=== PATIENT | female | born 1945 | race Caucasian/White ===

== ENCOUNTER 2016-02-27 18:47 | Inpatient (IN) | payer OTHER ==
[~2016-02-27] VITALS: Ht 160 cm; Wt 54.7 kg
--- NOTE | ~2016-02-27 | HC ---
[facility] [place] [address] CONSULTATION Name: KOURTNEY THOMAS Room #: 315-P ADM IN M.R.#: [id number] Admission: 02/27/16 Attend Phys: Shahram Luis DO Discharge: Date of : 45 Report #: [id number] THIS REPORT FOR: //name// CC: Shahram Krishnamurthy Tone DATE OF SERVICE: 03/04/2016 The patient is a 71-year-old white female who was admitted with mental status changes. She was found down by a neighbor. There was emesis and stool in her house. There also was a vodka container noted. She was admitted with acute renal failure on chronic kidney disease and her creatinine was noted to be 15.4 with her last prior at 2.8. She had severe metabolic acidosis, was noted to have metabolic encephalopathy. She was diagnosed with C. diff colitis and also urinary tract infection, placed on Rocephin. Nephrology has been involved and she has end-stage renal disease and is on hemodialysis now. She does have moderate to severe protein-calorie malnutrition. There is a history of daily vodka intake, although question how much. She does have the history of ETOH abuse included on her problem list. We are seeing her in rehabilitation medicine consultation. PAST MEDICAL HISTORY: Includes hypertension, hyperlipidemia, chronic kidney disease stage 3-4 and possible COPD. MEDICATIONS: Please see the full medication listing. SOCIAL HISTORY: She lives alone. No children or spouse. There is a note of drinking vodka daily, although uncertain exactly how much. She was driving in the community. She does have a Dr. Lockhart who is a durable power of claims attorney and friend as well as a friend, Marlee. She notes she does have a long-term care policy. FAMILY HISTORY: Appeared noncontributory. ALLERGIES: No known drug allergies. PAST SURGICAL HISTORY: Negative. REVIEW OF SYSTEMS: Did not offer any current complaints of chest pain, shortness of breath or abdominal discomfort. She was not on O2 premorbidly. Did not have any specific extremity pain complaints. Does complain of being overall weak and debilitated. PHYSICAL EXAMINATION: Pleasant 71-year-old white female. There is a definite latency to her responses, but she does follow basic 1 step commands. She could tell me the year and the place. Tends to be somewhat tangential. Facies are [facility] [address] [place] [address] CONSULTATION Name: ARTHUR THOMASN OLINDA Room #: 315-P [facility] IN .R.#: [id number] Admission: 02/27/16 Attend Phys: Shahram Luis DO Discharge: Date of : 45 Report #: [id number] symmetric. She is on 3 liters nasal prong O2. She has functional range of motion of both upper extremities with strength grade 4- to 3+/5. DTRs are trace to 1. In her lower extremities, there is no focal calf swelling, functional range of motion with strength grade 4+/5. No distal edema. DTRs are 1-2. She was mod assist with sit to stand. Gait was 2 feet min assist with the front wheeled walker for which she is taking small steps. ASSESSMENT: A 71-year-old white female with the following problem list: 1. Metabolic encephalopathy. This appears to be gradually improving. 2. Severe acute renal failure on chronic kidney disease. She is now on hemodialysis. 3. Clostridium difficile colitis. 4. Urinary tract infection, placed on Rocephin. 5. Moderate to severe protein-calorie malnutrition. 6. ETOH abuse. 7. Hypoxemia with the need for continued O2 usage. 8. Acidosis, which has improved. PLAN: Therapy evaluations are underway. We will be assessing her regarding her appropriateness for a potential acute in-hospital inpatient rehabilitation stay. We will be glad to follow along with you. <ELECTRONICALLY SIGNED> By: Harris Brown MD 03/04/16 1624 1145 1329 Harris Brown MD /nt
--- NOTE | ~2016-02-27 | HC ---
[facility] [place] [address] CONSULTATION Name: KOURTNEY THOMAS Room #: 315-P ADM IN M.R.#: [id number] Admission: 02/27/16 Attend Phys: Shahram Luis DO Discharge: Date of : 45 Report #: [id number] THIS REPORT FOR: //name// CC: Shahram Blackburn DATE OF SERVICE: 02/28/2016 REASON FOR CONSULTATION: Renal failure. HISTORY OF PRESENT ILLNESS: This is a 71-year-old female who was found in her home. She lives alone. She was checked on by a friend and was found to be delirious. This is the report from the Emergency Room, but that has been confirmed by other sources as that friend also contact our practice to report the developments. She had apparently been sick for several days with nausea, vomiting and diarrhea. She confirmed this, but cannot tell me if she has had fever. She has had some abdominal discomfort. From a kidney standpoint, she has chronic kidney disease stage V. She has had longstanding severe proteinuria, but has maintained enough function that she has not needed dialysis. She is followed in our office long-term by Dr. Raghu Blackburn. I have spoken with him this morning. He tells me that he has been quite amazed that she has not needed to proceed to dialysis prior to now. In addition to her proteinuria and chronically elevated creatinine, she tends to get very acidotic. She is chronically on bicarbonate replacement at home. She has extensive atherosclerotic vascular disease, and this has been further supported in review of her CT of the abdomen that was done in the Emergency Room last night, showing extensive calcific disease of numerous abdominal vessels including aorta, renal arteries, multiple order branches of the renal arteries and multiple of her mesenteric arteries. The patient does awaken more than what was described earlier, but is still fairly obtunded. She is able to answer "yes" and "no" to a few questions, but much of this history is considered a bit unreliable at this time. PAST MEDICAL HISTORY: Chronic kidney disease stage V. Nephrotic proteinuria. She has a history of COPD and is a chronic smoker, although reportedly Dr. Blackburn says she stopped smoking. She has some hypertension, secondary hyperparathyroidism and chronic anemia. She has also had previously documented renal artery stenosis, but has extensive vascular disease involving the small or intrarenal vessels. MEDICATIONS: On admission show an Advair inhaler, aspirin 81 mg daily, diltiazem 240 mg daily, Crestor 10 mg daily and allopurinol 100 mg daily. In addition, our office list shows some calcitriol 0.25 mcg 3 days weekly, p.r.n. colchicine, Prolia and some baking soda 1 teaspoon [address]. [address] [address] CONSULTATION Name: KOURTNEY THOMAS Room #: 315-P [facility] IN M.R.#: [id number] Admission: 02/27/16 Attend Phys: Shahram Luis DO Discharge: Date of : 45 Report #: [id number] ALLERGIES: Listed to LISINOPRIL. FAMILY HISTORY: Unavailable. SOCIAL HISTORY: The patient is single, lives alone in [place], [place]. She was a long-term smoker but has quit. She has also had some history of alcohol and there was some reported alcohol use over the weekend. REVIEW OF SYSTEMS: Basically as per the history of present illness. Otherwise, unobtainable from the patient in any reliable manner at this point. PHYSICAL EXAMINATION: GENERAL: Elderly appearing female, obtunded, but does awaken and respond, obviously dry on exam. VITAL SIGNS: Blood pressure 104/65, heart rate is 111, temperature 97.0 and oxygen saturation 93%. HEENT: Shows pupils are equal and reactive. Sclerae are nonicteric. Oral mucosa is parched without lesions. NECK: Supple without adenopathy, thyromegaly, JVD or bruit. CHEST: Shows shallow respirations but is generally clear. CARDIOVASCULAR: Heart has a regular rate and rhythm bordering on a tachycardia. ABDOMEN: Has bowel sounds which are actually present. Abdomen is mildly distended. It is moderately tender, but without guarding or rebound. I cannot palpate organomegaly or masses. It is actually fairly soft. No distention of the urinary bladder, and this was confirmed by bladder scan. EXTREMITIES: Show decreased skin turgor, although this is actually somewhat better than expected. There is moderate diffuse muscle atrophy. NEUROLOGIC: She is obtunded but does awaken and respond and moves all extremities. LABORATORY DATA: From the Emergency Room, sodium 138, potassium 5.4, chloride 98, bicarbonate 34, BUN 138, creatinine 15.4, glucose 102, calcium 7.5, magnesium 1.4, total protein 6.9 and albumin 3.2. White count 6.3, hemoglobin 9.3, hematocrit 29.3, platelets 328,000. Differential, 74 segs, 10 bands, 9 lymphs and 7 monocytes. Urinalysis from the Emergency Room, specific gravity greater than 1.030, pH 5.5, 3+ protein, 1+ ketones, 3+ blood and greater than 25 white cells. Blood gas from the Emergency Room, pH 6.88, pCO2 of 31 and pO2 of 87.9. Lactate 1.32. I reviewed her CT scan which showed the extensive calcific atherosclerotic disease. No obstruction to her urine outflow. ASSESSMENT: 1. Acute kidney injury on top of chronic kidney disease stage V. She has obviously been shut down for some time as her last creatinine in the office was in the 2.8-2.9 range. She is volume deplete, but has gotten volume [facility] [address] [place] [address] CONSULTATION Name: MARTHAKOURTNEY OLINDA Room #: 315-P ADM IN M.R.#: [id number] Admission: 02/27/16 Attend Phys: Shahram Luis DO Discharge: Date of : 45 Report #: [id number] resuscitation. Blood pressure is better than expected. She is uremic and very acidotic. We have been giving her bicarbonate, but she will need dialysis. I spoke with Dr. Blackburn who knows her well and said that she would want to pursue dialysis. She does not have much in the way of any family, but he has confirmed that this was the plan long term care social worker. In fact, he stayed that she had asked when the time came, to go on peritoneal dialysis. In the acute setting, we will need to do some hemodialysis. 2. Metabolic acidosis with a combination of renal failure and ketoacidosis largely likely due to lack of caloric intake/starvation. 3. Volume depletion, improved with additional intravenous fluids. We will continue bicarbonate containing intravenous fluids throughout the day. 4. Anemia of end-stage renal disease. I am sure hemoglobin will drop more. We will repeat iron studies. 5. Severe atherosclerotic vascular disease with calcific vessels on CT of the abdomen throughout. 6. Chronic obstructive pulmonary disease related to long-term tobacco use. PLAN: 1. Continue bicarbonate IV fluids at 250 an hour for a couple of more liters, then decrease to [address] a dialysis catheter. 3. Hemodialysis today with a gentle dialysis run. 4. Further evaluation of her abdominal discomfort. 5. We will be able to do a lot more once we get her more awake and with it and able to castellon us in on what has been going on. 6. Eventual plan for conversion to peritoneal dialysis. <ELECTRONICALLY SIGNED> By: Gael Conroy MD 03/01/16 0918 0742 1114 Gael Conroy MD /nt
--- NOTE | ~2016-02-27 | EKG ---
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 : 1945 Requested By: Sonia Ruiz Order Number: [id number] MD: Errol Polk Measurements Intervals [place] Rate: 95 P: 80 HI: 183 QRS: -58 QRSD: 139 T: 71 QT: 410 QTc: 516 Interpretive Statements Sinus rhythm Nonspecific intraventricular conduction delay Inferior infarct, old Possible septal infarct, age indeterminate No previous ECG available for comparison Electronically Signed On 02-28-2016 8:05:17 AUDIO INSTALLER by Errol Polk [email or web address] <ELECTRONICALLY SIGNED> By: Errol Polk MD, [facility] 01/804 55 55 Errol Polk MD, [facility] /EPI
--- NOTE | ~2016-02-27 | H ---
[facility] [place] [address] HISTORY AND PHYSICAL Name: KOURTNEY THOMAS Room #: 315-P [facility] IN M.R.#: [id number] Admission: 02/27/16 Attend Phys: Shahram Luis DO Discharge: 03/05/16 Date of : 45 Report #: [id number] THIS REPORT FOR: //name// CC: Shahram Blackburn DATE OF SERVICE: 02/27/2016 ATTENDING PHYSICIAN: Gucci Nichols MD PRIMARY CARE PHYSICIAN: Unknown. CHIEF COMPLAINT: Altered mental status. HISTORY OF PRESENT ILLNESS: The patient is a 71-year-old female who apparently was found by her neighbor with altered mental status. The patient's neighbor had seen her 1 week ago and she was acting normal at that time. When they found her today, she was confused, even though she insisted that she was feeling fine. She did find that there was emesis and stool all over the floor, bed and bathroom in her home. The patient did report she has been sick all weekend. This neighbor found a cup of vodka in the patient's bathroom, but she was unsure of when she had been drinking alcohol. The patient remains very lethargic and confused. She is not able to answer most questions. She has never been a patient here at [facility], so we have little previous records. The patient is able to tell me that she does live alone. She does report that she drinks vodka daily, although she cannot tell me the amount. She was able to tell me that she sees Dr. Blackburn, the percussion instrument repairer. She cannot tell me if she has been hospitalized recently or what she sees him for exactly. When speaking with Dr. Conroy with nephrology, he was able to pull up some office reports from Dr. Blackburn which showed that she just was seen in the office on January 09 and had a creatinine at that time of 2.8. Apparently, she has known chronic kidney disease as well as proteinuria. The neighbor also reported that they thought they had seen some blood on the sheets, but they were not sure if it was from the vomit or stool. The patient is mumbling incoherently at this time. In the ER, she was noted to be in acute renal failure and she has been admitted for further treatment. PAST MEDICAL HISTORY: Hypertension, hyperlipidemia, chronic kidney disease stage 3-4 and possible COPD. PAST SURGICAL HISTORY: Unknown. ALLERGIES: None. HOME MEDICATIONS: According to Dr. Blackburn's list she is on aspirin, Crestor, Calcitriol, diltiazem, Procrit, Advair, sodium bicarbonate and allopurinol. [address] [address] HISTORY AND PHYSICAL Name: KOURTNEY THOMAS Room #: 315-P [facility] IN M.R.#: [id number] Admission: 02/27/16 Attend Phys: Shahram Luis DO Discharge: 03/05/16 Date of : 45 Report #: [id number] SOCIAL HISTORY: She has been a smoker. She lives alone. She has no children or spouse. She does report drinking vodka daily, although she cannot tell me exactly how much. FAMILY HISTORY: Unobtainable due to altered mental status. REVIEW OF SYSTEMS: Unobtainable due to altered mental status. PHYSICAL EXAMINATION: GENERAL: The patient is a lethargic female, in no acute distress. VITAL SIGNS: Temperature is 36.6, heart rate 94, respirations 19, blood pressure is 109/38, oxygen 94% on room air. HEENT: PERRLA. Sclerae are nonicteric. Oral mucosa is pink and dry. She has crusty coating on her tongue. NECK: Supple. No JVD noted. CARDIAC: Normal S1, S2. No murmurs, rubs or gallops. RESPIRATORY: Breath sounds are shallow but clear throughout. No wheezing or rhonchi. ABDOMEN: Somewhat distended and round but soft. She is diffusely tender. VASCULAR: No edema noted. Pedal pulses are 2+. NEUROLOGIC: The patient is lethargic. She will open her eyes to sound but goes right back to sleep. She will answer a few yes and no questions as stated above. She is mostly mumbling incoherently. She does have some generalized weakness of her lower extremities, but she was able to lift her legs above the bed to command and has equal hand grasp. SKIN: Intact. She has a few scattered bruises but no open wounds or rashes. LABORATORY AND DIAGNOSTIC DATA: WBC is 6.3, hemoglobin 9.3, bands of 10% and platelets of 328. Sodium 138, potassium 5.4, bicarb is 6, BUN 136 and creatinine 15.4 and glucose 102. Anion gap of 34. LFTs are within normal limits. Albumin is 3.2. Alcohol level is less than 10. EKG showed sinus rhythm with a right bundle-branch block. UA is positive for leukocyte esterase, greater than 25 wbc's, 1+ ketones, 3+ protein. CT of the head showed no acute changes and there is moderate atrophy. ASSESSMENT AND PLAN: 1. Acute renal failure on chronic kidney disease, stage 3-4. Last known creatinine was 2.8 on 01/10/2016. This is likely worsened by the vomiting and diarrhea. We will continue with IV fluids. We will switch fluids from normal saline to D5W with 3 amps of bicarb due to her significant acidosis. We will follow labs and renal was consulted. 2. Severe metabolic acidosis. Start bicarbonate drip per renal recommendations. 3. Chronic anemia. Last known hemoglobin was 9.8; it is currently 9.3. We will monitor for any bleeding. [facility] [address] [place] [address] HISTORY AND PHYSICAL Name: MARTHAKOURTNEY OLINDA Room #: 315-P [facility] IN .R.#: [id number] Admission: 02/27/16 Attend Phys: Shahram Luis DO Discharge: 03/05/16 Date of : 45 Report #: [id number] 4. Nausea, vomiting and abdominal pain. She does have diffuse tenderness on exam with hypoactive bowel sounds. We will go ahead and CT the abdomen to make sure there are no acute changes. 5. Hyperkalemia; this is secondary to renal failure. She does not have any associated EKG changes, so she does not need any emergent hemodialysis. 6. Urinary tract infection. Urine will be sent for culture, start Rocephin. 7. Possible alcohol abuse. Her neighbor does report that she drinks daily. We will monitor for any signs of alcohol withdrawal. 8. Deep venous thrombosis prophylaxis. Place sequential compression devices. We will continue to follow the patient closely throughout the hospitalization and make changes based on clinical status. <ELECTRONICALLY SIGNED> By: AFSANEH Lovell 03/12/16 0456 0238 0352 AFSANEH Lovell /cricket
[~2016-02-27 18:47] MED LIST: ACETAMINOPHEN325 M1 PO; ADVAIR HFA 1112 UNIT INH; ALDACTONE25 MG PO; ALIGN4 MG PO; ALLOPURINOL 10100 M1 PO; AMLODIPINE; ASPIRIN EC81 M1; CALCIUM CARBON500 M3 PO; CARDIZEM CD 18180 M3 PO; CARDIZEM CD240 MG PO; CHANTIX1 MG PO; COLACE100 MG PO; COLCHICINE 0.60.6 M1 PO; COLCHICINE PO; COZAAR 50 MG TA50 MG PO; CRESTOR10 MG PO; DILTIAZEM 24HR180 MG PO; DILTIAZEM 24HR240 MG PO; DUONEB 2.5-0.5 M3 ML INH; FOLIC ACID1 MG PO; FOSAMAX 70 MG T70 MG PO; FUROSEMIDE 40 M40 M1 PO; HYDROCODON-ACE1 EAC7 PO; LISINOPRIL5 MG; MULTIVITAMINS PO; NICOTINE TRANSD14 M1 TRANSDERM; OMEPRAZOLE 20 M20 M1 PO; PERCOCET 5-3251 EACH PO; PLAVIX 75 MG TA75 M1 PER TUBE; PLAVIX 75 MG TA75 M1 PO; PLAVIX 75 MG TA75 MG; PRENATAL VITAMIN PO; TUCKS HEMORRH28.3 GM TOP; VARENICLINE TARTRATE PO; VITAMIN B-1100 M1 PO; VITAMIN D400 UNI1 PO
[2016-02-27 19:04] VITALS: BP 109/38
[2016-02-27 19:47] LABS: HEMATOCRIT 29.3 % (37.0-47.0); HEMOGLOBIN 9.3 gm/dL (12.0-15.0); MCH 32.6 pg (26.0-34.0); MCHC 31.9 % (28.0-37.0); MCV 102.1 fL (80.0-100.0); PLATELET COUNT 328 thou/uL (150-400); RBC 2.86 mil/uL (4.20-5.00); WBC 6.3 thou/uL (4.0-11.0)
[2016-02-27 19:50] LABS: MANUAL DIFF YES
[2016-02-27 19:57] LABS: CALCIUM 7.5 mg/dL (8.5-10.1); CREATININE 15.4 mg/dL (0.6-1.3); POTASSIUM 5.4 mmol/L (3.5-5.1)
[2016-02-27 20:03] LABS: TOTAL BILIRUBIN 0.4 mg/dL (<0.1-1.0)
[2016-02-27 20:04] LABS: ALBUMIN 3.2 g/dL (3.4-5.0); TOTAL PROTEIN 6.9 g/dL (6.4-8.2)
[2016-02-27 20:15] LABS: ABSOLUTE NEUTROPHILS 5.3 thou/uL (1.4-8.2); ANISOCYTOSIS 2+; POIKILOCYTOSIS SLIGHT; TOTAL CELL COUNT 100
[2016-02-27 20:23] LABS: URINE BLOOD 3+ (Negative); URINE COLOR YELLOW; URINE GLUCOSE-RANDOM* NEGATIVE (Negative); URINE KETONES 1+ (Negative); URINE LEUKOCYTES-REFLEX 1+ (Negative); URINE PROTEIN (DIPSTICK) 3+ (Negative); URINE SPECIFIC GRAVITY >= 1.030 (1.003-1.035); URINE UROBILINOGEN 0.2 E.U./dl (0.2-1.0)
[2016-02-27 20:28] LABS: ICTOTEST (BILI CONFIRMATORY) Negative (Negative); URINE BILIRUBIN NEGATIVE (Negative)
[2016-02-27 20:29] LABS: CASTS None Seen /LPF (None Seen); SQUAMOUS None Seen /LPF (0-3)
[2016-02-27 20:30] LABS: CRYSTALS None Seen /LPF (None Seen); URINE RBC 0-2 Rare /HPF (0-2); URINE WBC-REFLEX >25 Many /HPF (0-5)
[2016-02-27] MEDS ORDERED: ADVAIR HFA115 MCG/21 INH (20:31)
[2016-02-27] MEDS ORDERED: ASPIR 8181 MG PO (20:31)
[2016-02-27] MEDS ORDERED: CARDIZEM CD240 MG PO (20:32)
[2016-02-27] MEDS ORDERED: CRESTOR10 MG PO (20:34)
[2016-02-27] MEDS ORDERED: ALLOPURINOL 10100 M1 PO (20:34)
[2016-02-27 22:20] VITALS: BP 106/54
[2016-02-27 23:50] LABS: ABG SAMPLE TYPE ARTERIAL; BE(vivo) -26.1 mmol/L (-2 to +3); HCO3 5.8 mmol/L (22.0-26.0); LACTATE 1.32 mmol/L (0.5-2.0); O2Hb 91.2 % (92.0-98.0); PCO2 31.1 mmHg (35.0-45.0); PO2 87.9 mmHg (80.0-100.0); STICK SITE L.BRACHIAL; pH 6.885 (7.360-7.450); tCO2 6.7 mmol/L (24.0-30.0)
[2016-02-28] VITALS (9 sets, daily range): BP systolic 104–145; BP diastolic 58–75
[2016-02-28 06:10] LABS: HEMATOCRIT 26.6 % (37.0-47.0); HEMOGLOBIN 8.6 gm/dL (12.0-15.0); MCH 32.2 pg (26.0-34.0); MCHC 32.2 % (28.0-37.0); RBC 2.66 mil/uL (4.20-5.00); RDW 16.2 % (10.5-14.5); WBC 3.5 thou/uL (4.0-11.0)
[2016-02-28 06:39] LABS: CALCIUM 6.7 mg/dL (8.5-10.1); MAGNESIUM 1.4 mg/dL (1.8-2.4)
[2016-02-28 06:45] LABS: CREATININE 14.3 mg/dL (0.6-1.3); POTASSIUM 4.2 mmol/L (3.5-5.1)
[2016-02-28 07:49] LABS: INR 1.1; PROTIME 11.2 Seconds (9.3-11.4)
[2016-02-28 09:00] LABS: PHOSPHORUS 11.7 mg/dL (2.5-4.9)
[2016-02-28 12:12] LABS: IRON 124 ug/dL (27-139)
[2016-02-28 13:13] LABS: % SATURATION 83 % (15-55); TIBC 149 ug/dL (250-450); UIBC 25 ug/dL (118-369)
[2016-02-29 00:07] VITALS: BP 123/63
[2016-02-29 03:18] VITALS: BP 139/75
[2016-02-29 05:09] LABS: FERRITIN 179 ng/mL (15-150)
[2016-02-29 06:38] LABS: HEMATOCRIT 24.2 % (37.0-47.0); HEMOGLOBIN 8.3 gm/dL (12.0-15.0); MCH 32.4 pg (26.0-34.0); MCHC 34.3 % (28.0-37.0); PLATELET COUNT 186 thou/uL (150-400); RBC 2.56 mil/uL (4.20-5.00); RDW 15.9 % (10.5-14.5)
[2016-02-29 06:43] LABS: MANUAL DIFF YES
[2016-02-29 06:45] LABS: MCV 94.5 fL (80.0-100.0)
[2016-02-29 06:52] LABS: ALBUMIN 2.4 g/dL (3.4-5.0); CALCIUM 6.6 mg/dL (8.5-10.1); PHOSPHORUS 3.6 mg/dL (2.5-4.9); POTASSIUM 3.1 mmol/L (3.5-5.1)
[2016-02-29 06:54] LABS: CREATININE 6.7 mg/dL (0.6-1.3)
[2016-02-29 07:27] LABS: ABSOLUTE NEUTROPHILS 3.4 thou/uL (1.4-8.2); TOTAL CELL COUNT 100
[2016-02-29 07:45] VITALS: BP 124/77
[2016-02-29 11:17] VITALS: BP 144/76
[2016-02-29 15:40] VITALS: BP 136/72
[2016-02-29 20:00] VITALS: BP 137/76
[2016-03-01 04:00] VITALS: BP 124/72
[2016-03-01 05:56] LABS: ABSOLUTE NEUTROPHILS 3.8 thou/uL (1.4-8.2); BASOPHILS 0.2 % (0.0-2.0); EOSINOPHILS 0.3 % (0.0-3.0); HEMATOCRIT 26.8 % (37.0-47.0); HEMOGLOBIN 8.6 gm/dL (12.0-15.0); LYMPHOCYTES 10.4 % (24.0-44.0); MCH 31.5 pg (26.0-34.0); MCHC 32.1 % (28.0-37.0); MCV 98.1 fL (80.0-100.0); MONOCYTES 11.2 % (1.0-8.0); PLATELET COUNT 199 thou/uL (150-400); POLYS 77.9 % (36.0-66.0); RBC 2.73 mil/uL (4.20-5.00); RDW 16.1 % (10.5-14.5); WBC 4.8 thou/uL (4.0-11.0)
[2016-03-01 06:09] LABS: MANUAL DIFF NO
[2016-03-01 06:18] LABS: ALBUMIN 2.4 g/dL (3.4-5.0); CALCIUM 6.9 mg/dL (8.5-10.1); PHOSPHORUS 2.6 mg/dL (2.5-4.9); POTASSIUM 3.6 mmol/L (3.5-5.1)
[2016-03-01 07:07] VITALS: BP 122/67
[2016-03-01 07:26] VITALS: BP 122/72
[2016-03-01 11:41] VITALS: BP 129/70
[2016-03-01 16:08] VITALS: BP 135/74
[2016-03-01 21:03] VITALS: BP 124/72
[2016-03-02 04:25] VITALS: BP 126/81
[2016-03-02 06:09] LABS: HEMATOCRIT 24.7 % (37.0-47.0); MCH 31.8 pg (26.0-34.0); MCHC 32.5 % (28.0-37.0); RBC 2.52 mil/uL (4.20-5.00); RDW 16.2 % (10.5-14.5); WBC 3.9 thou/uL (4.0-11.0)
[2016-03-02 06:25] LABS: ALBUMIN 2.4 g/dL (3.4-5.0); CALCIUM 6.4 mg/dL (8.5-10.1); CREATININE 4.9 mg/dL (0.6-1.3); PHOSPHORUS 3.3 mg/dL (2.5-4.9); POTASSIUM 3.5 mmol/L (3.5-5.1)
[2016-03-02 07:34] VITALS: BP 133/73
[2016-03-02 11:21] VITALS: BP 144/75
[2016-03-02 17:02] VITALS: BP 148/80
[2016-03-02 21:30] VITALS: BP 150/82
[2016-03-03 05:20] VITALS: BP 151/85
[2016-03-03 06:29] LABS: HEMATOCRIT 25.3 % (37.0-47.0); HEMOGLOBIN 8.2 gm/dL (12.0-15.0); MCHC 32.5 % (28.0-37.0); MCV 98.5 fL (80.0-100.0); RBC 2.57 mil/uL (4.20-5.00); RDW 16.3 % (10.5-14.5); WBC 4.1 thou/uL (4.0-11.0)
[2016-03-03 06:41] LABS: ALBUMIN 2.3 g/dL (3.4-5.0); CALCIUM 6.3 mg/dL (8.5-10.1); CREATININE 5.4 mg/dL (0.6-1.3); PHOSPHORUS 3.4 mg/dL (2.5-4.9); POTASSIUM 3.4 mmol/L (3.5-5.1)
[2016-03-03 08:00] VITALS: BP 139/78
[2016-03-03 12:04] VITALS: BP 139/80
[2016-03-03 15:07] VITALS: BP 160/107
[2016-03-03 19:54] VITALS: BP 140/79
[2016-03-04 03:53] VITALS: BP 142/86
[2016-03-04 05:28] LABS: HEMATOCRIT 26.6 % (37.0-47.0); HEMOGLOBIN 8.5 gm/dL (12.0-15.0); MCH 31.9 pg (26.0-34.0); MCHC 31.8 % (28.0-37.0); MCV 100.4 fL (80.0-100.0); RBC 2.65 mil/uL (4.20-5.00); RDW 16.2 % (10.5-14.5)
[2016-03-04 05:46] LABS: ALBUMIN 2.3 g/dL (3.4-5.0); CALCIUM 6.8 mg/dL (8.5-10.1); PHOSPHORUS 2.4 mg/dL (2.5-4.9); POTASSIUM 3.9 mmol/L (3.5-5.1)
[2016-03-04 05:52] LABS: CREATININE 2.7 mg/dL (0.6-1.3)
[2016-03-04 08:00] VITALS: BP 109/73
[2016-03-04 12:00] VITALS: BP 136/72
[2016-03-04] MEDS ORDERED: CIPRO250 M1 PO (13:22)
[2016-03-04] MEDS ORDERED: VANCOMYCIN100 MG/ML PO (13:22)
[2016-03-04 16:00] VITALS: BP 127/79
[2016-03-04 20:35] VITALS: BP 143/85
[2016-03-05 03:56] VITALS: BP 125/77
[2016-03-05 08:11] VITALS: BP 123/72
[2016-03-05 13:31] VITALS: BP 123/73
[2016-03-05 15:12] VITALS: BP 123/70
[2016-03-05] MEDS ORDERED: OSELB75 PO (17:12)
== END 2016-03-05 19:18 | DRG 871 ==
LOC: ER 18:47 → 3N 20:20 → EROBS 20:20 → 3N 20:20
PROVIDERS: Emergency Medicine; Family Medicine; Hospitalist; Internal Medicine Nephrology; Nurse Practitioner Acute Care
PROC: 05HN33Z Insertion of Infusion Device into Left Internal Jugular Vein, Percutaneous Approach (ICD-10-PCS; principal; 2016-02-28)
PROC: 5A1D60Z (ICD-10-PCS; 2016-02-28)
DX: A41.9 Sepsis, unspecified organism (principal); N18.6 End stage renal disease; G93.41 Metabolic encephalopathy; E43 Unspecified severe protein-calorie malnutrition; A04.7 Enterocolitis due to Clostridium difficile; N39.0 Urinary tract infection, site not specified; E87.2 Acidosis; N17.9 Acute kidney failure, unspecified; I12.0 Hypertensive chronic kidney disease with stage 5 chronic kidney disease or end stage renal disease; Z60.2 Problems related to living alone; E86.9 Volume depletion, unspecified; D63.1 Anemia in chronic kidney disease; E78.5 Hyperlipidemia, unspecified; E87.6 Hypokalemia; K80.20 Calculus of gallbladder without cholecystitis without obstruction; E87.5 Hyperkalemia; F10.10 Alcohol abuse, uncomplicated; B96.1 Klebsiella pneumoniae [K. pneumoniae] as the cause of diseases classified elsewhere; I25.10 Atherosclerotic heart disease of native coronary artery without angina pectoris; J44.9 Chronic obstructive pulmonary disease, unspecified; E21.3 Hyperparathyroidism, unspecified; Z88.8 Allergy status to other drugs, medicaments and biological substances; Z79.899 Other long term (current) drug therapy; Z79.82 Long term (current) use of aspirin; Z79.2 Long term (current) use of antibiotics; Z99.2 Dependence on renal dialysis; Z68.21 Body mass index [BMI] 21.0-21.9, adult; Z87.891 Personal history of nicotine dependence
CPT/HCPCS: 10096; 32100; 50455

== ENCOUNTER 2016-07-01 20:58 | Inpatient (IN) | payer OTHER ==
[~2016-07-01] VITALS: Ht 160 cm; Wt 51.3 kg
--- NOTE | ~2016-07-01 | EKG ---
[address] [place] [facility] [address] ELECTROCARDIOGRAM REPORT Name: INDIRA THOMASLYN OLINDA Room #: 209-P [facility] IN .R.#: [id number] Admission: 07/02/16 Attend Phys: Felix Elizondo MD Discharge: Date of : 45 Report #: [id number] THIS REPORT FOR: //name// [facility] ED Test Date: 2016-07-01 Test Time: 21:30:35 Pat Name: KOURTNEY THOMAS Department: Room: 209 Gender: F Concaver: MARYA : 1945 Requested By: Austen Roberts Order Number: [id number] MD: Errol Polk Measurements Intervals [place] Rate: 92 P: -40 TX: 121 QRS: -81 QRSD: 135 T: 261 QT: 519 QTc: 643 Interpretive Statements Sinus rhythm RBBB and LAFB Abnrm T, probable ischemia, anterolateral lds Compared to ECG 02/27/2016 18:56:47 ST-T wave abnormality is more pronounced QT interval has lengthened Electronically Signed On 07-02-2016 7:51:07 CDT by Errol Polk [email or web address] <ELECTRONICALLY SIGNED> By: Errol Polk MD, [facility] 07/02/16 0751 29 Errol Polk MD, [facility] /EPI
--- NOTE | ~2016-07-01 | 2DMMODE ---
[facility] [address] [place] [address] 2 D/M-MODE ECHOCARDIOGRAM Name: KOURTNEY THOMAS Room #: 209-P ADM IN ..#: [id number] Admission: 07/02/16 Attend Phys: Felix Elizondo MD Discharge: Date of : 45 Date of Service: 07/02/16 1031 Report #: [id number] THIS REPORT FOR: //name// APPROVED REPORT Study performed: 07/02/2016 08:00:50 EXAM: Comprehensive 2D, Doppler, and color-flow Echocardiogram Patient Location: Bedside Room #: 209 Blood Pressure: 115/67 mmHg HR: 84 bpm Rhythm: NSR Other Information Study Quality: Adequate Indications Congestive Heart Failure Hx renal failure, HTN, SOA, former smoker 2D Dimensions RVDd: 39.99 mm LVEF(%): 29.77 (>50%) IVSd: 12.46 (7-11mm) LVOT Diam: 22.01 (18-24mm) LVDd: 40.22 mm PWd: 10.02 (7-11mm) Ascending Ao: 30.95 (22-36mm) LVDs: 34.70 (25-40mm) Aortic Root: 34.16 mm White's LVEF: 29.77 % Volumes Left Atrial Volume (Systole) Single Plane 4CH: 28.39 mL Single Plane 2CH: 29.71 mL LA ESV Index: 22.00 mL/m2 Aortic Valve AoV Peak Arthur.: 1.27 m/s AO Peak Gr.: 6.46 mmHg LVOT Max P.58 mmHg LVOT Max V: 1.07 m/s LETY Vmax: 3.20 cm2 Mitral Valve [facility] [address] [place] [address] 2 D/M-MODE ECHOCARDIOGRAM Name: KOURTNEY THOMAS Room #: 209-P [facility] IN ..#: [id number] Admission: 07/02/16 Attend Phys: Felix Elizondo MD Discharge: Date of : 45 Date of Service: 07/02/16 1031 Report #: [id number] E/A Ratio: 0.8 MV Decel. Time: 171.01 ms MV E Max Arthur.: 0.56 m/s MV A Arthur.: 0.66 m/s MV PHT: 49.59 ms IVRT: 92.27 ms Pulmonary Valve PV Peak Arthur.: 1.01 m/s PV Peak Gr.: 4.06 mmHg Tricuspid Valve TR Peak Arthur.: 2.82 m/s RAP Estimate: 5.00 mmHg TR Peak Gr.: 31.87 mmHg RVSP: 37.00 mmHg Left Ventricle The left ventricle is normal size. Mild basal septal hypertrophy is present. Left ventricular systolic function is decreased. LVEF is 40-45%.with apical septal akinesis Grade I - abnormal relaxation pattern. Right Ventricle The right ventricle is normal size. The right ventricular systolic function is normal. Atria The left atrium size is normal. The right atrium size is normal. Aortic Valve Aortic valve is calcified. Trace aortic regurgitation. There is no aortic valvular stenosis. Mitral Valve Mitral valve leaflets are mildly thickened. There is mitral annular calcification. Trace mitral regurgitation. No evidence of mitral valve stenosis. Tricuspid Valve The tricuspid valve is normal in structure. There is moderate tricuspid regurgitation. The right atrial pressure is estimated at 5 mmHg. There is mild pulmonary hypertension. Estimated PAP 37 mmHg. Pulmonic Valve The pulmonary valve is normal in structure. Trace pulmonic regurgitation. [facility] [address] [place] [address] 2 D/M-MODE ECHOCARDIOGRAM Name: KOURTNEY THOMAS Room #: 209-P [facility] IN ..#: [id number] Admission: 07/02/16 Attend Phys: Felix Elizondo MD Discharge: Date of : 45 Date of Service: 07/02/16 1031 Report #: [id number] Great Vessels The aortic root is normal in size. The ascending aorta is normal in size. IVC is normal in size and collapses >50% with inspiration. Pericardium There is no pericardial effusion. <Conclusion> The left ventricle is normal size. LVEF is 40-45%.with apical septal akinesis Aortic valve is calcified. Mitral valve leaflets are mildly thickened. There is mitral annular calcification. Trace mitral regurgitation. The tricuspid valve is normal in structure. There is moderate tricuspid regurgitation. The right atrial pressure is estimated at 5 mmHg. There is mild pulmonary hypertension. Estimated PAP 37 mmHg. Trace pulmonic regurgitation. <ELECTRONICALLY SIGNED> By: Rajendra Hdz MD 07/02/16 1031 1031 1031 Rajendra Hdz MD /INF
--- NOTE | ~2016-07-01 | H ---
[facility] [place] [address] HISTORY AND PHYSICAL Name: KOURTNEY THOMAS Room #: 209-P ADM IN M.R.#: [id number] Admission: 07/02/16 Attend Phys: Felix Elizondo MD Discharge: Date of : 45 Report #: [id number] THIS REPORT FOR: //name// CC: Felix Carmonaie Roma DATE OF SERVICE: 07/02/2016 REASON FOR ADMISSION: Chest pain. HISTORY OF PRESENT ILLNESS: The patient is a pleasant 71-year-old female, presently on dialysis Thursday, and Thursday. She was at her dialysis unit yesterday and towards the end of dialysis started feeling somewhat dizzy and unwell. She subsequently may have had a near syncopal event as well. Per report, she thinks her blood pressure was notably low in the setting in the dialysis unit. She feels she may have had excess volume removed yesterday of approximately 2 liters as compared to 1.7 liters on a routine basis. Her symptoms were also accompanied by some left-sided chest pain radiating to her left shoulder. With all the symptoms, she was sent to the emergency room where she was noted to have minimal BNP and troponin elevation and has been admitted for further evaluation. When seen by me this morning, she is asymptomatic and denies chest pain. She denies recent chest pain or other problems. She denies nausea, vomiting, diarrhea, dizziness, headaches, skin rashes, fevers, or other problems. PAST MEDICAL HISTORY: Includes: 1. End-stage renal disease, on dialysis with history of recent severe C. diff infection. 2. Hypertension. 3. Hyperlipidemia. 4. Macular degeneration. 5. Probable COPD. MEDICATIONS: Refer to reconciliation note. ALLERGIES: None known. SOCIAL HISTORY: Significant remote tobacco use of 2 packs per day for more than 50 years, presently reports quitting. No significant alcohol or drug use reported. FAMILY HISTORY: Unknown as she is adopted. REVIEW OF SYSTEMS: Twelve-point review of systems performed, negative except as mentioned in the history of present illness. [facility] [address] [place] [address] HISTORY AND PHYSICAL Name: KOURTNEY THOMAS Room #: 209-P [facility] IN [facility]#: [id number] Admission: 07/02/16 Attend Phys: Felix Elizondo MD Discharge: Date of : 45 Report #: [id number] PHYSICAL EXAMINATION: VITAL SIGNS: Afebrile, pulse of 87, respiratory rate 16, O2 sat 92 on room air, and blood pressure is 122/66. GENERAL: Awake, alert, in no acute distress. HEENT: Unremarkable. NECK: No JVD or thyromegaly. CARDIOVASCULAR: S1, S2 present, regular. RESPIRATORY: Air entry present bilaterally. ABDOMEN: Soft, nontender. EXTREMITIES: Without edema. NEUROLOGIC: Awake, alert. No obvious focal findings. SKIN: Unremarkable for rash or lesions. LABS AND INVESTIGATIONS: Chemistry notable for elevated BUN and creatinine consistent with history of dialysis. Troponins minimally elevated at 0.11 and 0.08. BNP elevated at 8589. EKG with sinus rhythm with questionable inferior ST-T changes without obvious elevation. Chest x-ray demonstrates no acute findings. Echocardiogram from 2012, with EF of 30%. ASSESSMENT: This is a 71-year-old female on dialysis, presenting with chest clonidine. PLAN: 1. Chest pain. The patient does have multiple cardiac risk factors. Cardiology has been consulted to see her and we will follow their recommendations. She is already started on an aspirin. Her troponin elevation may simply represent mild volume related findings in the setting of end-stage renal disease. 2. End-stage renal disease, on dialysis, presently appears euvolemic. We will involve renal to coordinate her dialysis care. 3. Hypertension, fair control. Home meds resume. 4. Hyperlipidemia, on statin. 5. DVT prophylaxis with heparin. <ELECTRONICALLY SIGNED> By: Wali Blanca MD 07/02/16 1225 0840 0858 Wali Blanca MD /nt
--- NOTE | ~2016-07-01 | HC ---
[facility] [place] [address] CONSULTATION Name: KOURTNEY THOMAS Room #: 209-P ADM IN M.R.#: [id number] Admission: 07/02/16 Attend Phys: Felix Elizondo MD Discharge: Date of : 45 Report #: [id number] THIS REPORT FOR: //name// CC: Felix Brandon REASON FOR CONSULTATION: Known kidney issues. REASON FOR PRESENTATION: Syncope. HISTORY OF PRESENT ILLNESS: The patient is well known to me. She is known to have longstanding diabetes mellitus and chronic kidney disease. She sees us in [facility] dialysis unit. She was recently switched from 3 times a week dialysis to 2 times a week. She had an acute kidney injury back in February of this year and she was started on dialysis accordingly. Should that time, she was thought to have or she was found to have C. diff with the GI and was causing an acute kidney injury on top of chronic kidney disease. She was in the dialysis unit and had a syncopal episode that seems to be related to aggressive ultrafiltration. She was admitted for further evaluation and management. No chest pain. No shortness of breath. No reported previous similar episodes. PAST MEDICAL HISTORY: 1. Acute kidney injury on top of chronic kidney disease. 2. Hypertension. 3. Diabetes mellitus. 4. C. diff. MEDICATIONS: 1. Aspirin. 2. Diltiazem. 3. Crestor. 4. Allopurinol. ALLERGIES: No known drug allergies. FAMILY HISTORY: Significant for hypertension. REVIEW OF SYSTEMS: GENERAL: No fever or chills. CARDIOVASCULAR: No chest pain or shortness of breath. PULMONARY: No cough or hemoptysis. GASTROINTESTINAL: No nausea or vomiting. GENITOURINARY: She makes urine. No frequency, no urgency. NEUROLOGIC: As per the history of present illness. PHYSICAL EXAMINATION: GENERAL: She is alert, oriented, in no apparent distress. [facility] [address] [place] [address] CONSULTATION Name: KOURTNEY THOMAS Room #: 209-P [facility] IN [facility]#: [id number] Admission: 07/02/16 Attend Phys: Felix Elizondo MD Discharge: Date of : 45 Report #: [id number] VITAL SIGNS: Blood pressure is 122/66. Temperature 36.8. HEAD AND NECK: No jugular venous distention, no bruit, no thyromegaly. CHEST: Clear to auscultation bilaterally. CARDIOVASCULAR: No rub detected. ABDOMEN: Soft, nontender with no hepatosplenomegaly. LOWER EXTREMITIES: No edema with intact peripheral pulses. LABORATORY DATA: Reviewed. She has an elevated BNP and a mildly elevated troponin. ASSESSMENT, IMPRESSION, PLAN: 1. Acute kidney injury. 2. Chronic kidney disease. 3. Syncopal episode due to aggressive ultrafiltration. 4. No further evaluation as needed. She can go home. I will discuss with my dialysis nurses regarding adjustment of her estimated dry weight. 5. Her numbers indicate that she might be having partial recovery of her kidney function and will follow up as an outpatient. <ELECTRONICALLY SIGNED> By: Lori Coronado MD 07/02/16 1101 0845 1050 Lori Coronado MD /nt
[~2016-07-01 20:58] MED LIST changes: +ADVAIR HFA115 MCG/21 INH; +ASPIR 8181 MG PO; +CIPRO250 M1 PO; +OSELB75 PO; +VANCOMYCIN100 MG/ML PO
[2016-07-01 21:04] VITALS: BP 118/72
[2016-07-01 22:46] LABS: HEMATOCRIT 32.5 % (37.0-47.0); MCH 31.9 pg (26.0-34.0); MCV 93.8 fL (80.0-100.0); PLATELET COUNT 243 thou/uL (150-400); RBC 3.46 mil/uL (4.20-5.00); RDW 15.6 % (10.5-14.5); WBC 8.5 thou/uL (4.0-11.0)
[2016-07-01 22:47] LABS: MANUAL DIFF YES
[2016-07-01 23:31] LABS: ABSOLUTE NEUTROPHILS 7.8 thou/uL (1.4-8.2); TOTAL CELL COUNT 100
[2016-07-01 23:32] LABS: ANISOCYTOSIS 1+; MACROCYTES SLIGHT
[2016-07-01 23:33] LABS: CALCIUM 9.5 mg/dL (8.5-10.1); CREATININE 1.8 mg/dL (0.6-1.0); POTASSIUM 3.3 mmol/L (3.5-5.1); TROPONIN-I 0.11 ng/mL (<0.04-0.07)
[2016-07-02 01:09] VITALS: BP 96/73
[2016-07-02 01:43] VITALS: BP 115/67
[2016-07-02 05:15] LABS: HEMATOCRIT 29.9 % (37.0-47.0); HEMOGLOBIN 10.1 gm/dL (12.0-15.0); MCH 31.6 pg (26.0-34.0); MCHC 33.8 g/dL (28.0-37.0); MCV 93.5 fL (80.0-100.0); RBC 3.2 mil/uL (4.20-5.00); RDW 15.3 % (10.5-14.5); WBC 6.1 thou/uL (4.0-11.0)
[2016-07-02 05:22] LABS: CALCIUM 9.6 mg/dL (8.5-10.1); CREATININE 2.3 mg/dL (0.6-1.0); POTASSIUM 3.7 mmol/L (3.5-5.1)
[2016-07-02 07:42] VITALS: BP 122/66
[2016-07-02 12:17] VITALS: BP 131/68
[2016-07-02 13:26] LABS: CHOLESTEROL 175 mg/dL (<200); HDL CHOLESTEROL 82 mg/dL (>40); LDL CHOLESTEROL 74 mg/dL (<100); TC:HDL 2.1 Ratio (Not establshd); TRIGLYCERIDE 98 mg/dL (<150); VLDL 20 mg/dL (<40)
[2016-07-02 16:55] VITALS: BP 123/69
[2016-07-02 20:00] VITALS: BP 119/73
[2016-07-03 03:18] VITALS: BP 126/74
[2016-07-03 07:45] VITALS: BP 144/79
[2016-07-03 11:55] VITALS: BP 144/68
[2016-07-03 15:55] VITALS: BP 116/66
[2016-07-03 20:55] VITALS: BP 144/60
[2016-07-03 23:41] VITALS: BP 143/77
[2016-07-04 03:00] LABS: HEMATOCRIT 30.7 % (37.0-47.0); HEMOGLOBIN 10.5 gm/dL (12.0-15.0); MCH 32.3 pg (26.0-34.0); MCHC 34.2 g/dL (28.0-37.0); MCV 94.7 fL (80.0-100.0); RBC 3.24 mil/uL (4.20-5.00); RDW 15.9 % (10.5-14.5); WBC 3.9 thou/uL (4.0-11.0)
[2016-07-04 03:14] LABS: ALBUMIN 2.9 g/dL (3.4-5.0); CALCIUM 9.9 mg/dL (8.5-10.1); PHOSPHORUS 5.2 mg/dL (2.5-4.9); POTASSIUM 3.9 mmol/L (3.5-5.1)
[2016-07-04 03:24] LABS: CREATININE 3.6 mg/dL (0.6-1.0)
[2016-07-04 05:16] VITALS: BP 126/77
[2016-07-04 07:55] VITALS: BP 110/70; BP 155/104
[2016-07-04] MEDS ORDERED: COREG6.25 MG PO (09:07)
[2016-07-04 11:05] VITALS: BP 110/70
[2016-07-04 11:15] VITALS: BP 111/64
[2016-07-04 13:10] VITALS: BP 110/70
== END 2016-07-04 13:20 | disposition home or self-care (01) | DRG 683 ==
LOC: ER 20:58 → EROBS 07-02 00:43 → 2N 07-02 00:43
PROVIDERS: Emergency Medicine; Internal Medicine Nephrology; Nurse Practitioner Family; Nurse Practitioner Gerontology
PROC: 5A1D00Z (ICD-10-PCS; principal; 2016-07-02)
DX: N17.9 Acute kidney failure, unspecified (principal); I13.2 Hypertensive heart and chronic kidney disease with heart failure and with stage 5 chronic kidney disease, or end stage renal disease; I42.9 Cardiomyopathy, unspecified; N18.6 End stage renal disease; R07.9 Chest pain, unspecified; R55 Syncope and collapse; E11.22 Type 2 diabetes mellitus with diabetic chronic kidney disease; I50.9 Heart failure, unspecified; J44.9 Chronic obstructive pulmonary disease, unspecified; M10.9 Gout, unspecified; E78.5 Hyperlipidemia, unspecified; Z79.899 Other long term (current) drug therapy; Z90.49 Acquired absence of other specified parts of digestive tract; Z79.82 Long term (current) use of aspirin; Z87.891 Personal history of nicotine dependence; Z82.49 Family history of ischemic heart disease and other diseases of the circulatory system; Z99.2 Dependence on renal dialysis
CPT/HCPCS: 10081

== ENCOUNTER 2016-08-31 11:40 | Inpatient (IN) | payer OTHER ==
[~2016-08-31] VITALS: Ht 154.9 cm; Wt 43.1 kg
--- NOTE | ~2016-08-31 | HC ---
[facility] [place] [address] CONSULTATION Name: KOURTNEY THOMAS Room #: 219-P [facility] IN M.R.#: [id number] Admission: 08/31/16 Attend Phys: Shahram Luis DO Discharge: 09/03/16 Date of : 45 Report #: [id number] THIS REPORT FOR: //name// CC: Errol Brandon REASON FOR CONSULTATION: End-stage renal disease. REASON FOR THE PRESENTATION: Chest pain. HISTORY OF PRESENT ILLNESS: The patient is a 71-year-old who is well known to me. She had an end-stage renal disease, COPD, hyperlipidemia, diabetes mellitus and hypertension. She is also known to have a depressed ejection fraction. Her presenting symptom was chest pain after the dialysis. She was found to have an elevated troponin and was admitted for further evaluation and management. This was a typical cardiac chest pain. That has resolved. She has been dialyzing twice a week with anticipation of resolution of her kidney failure; however, this had not happened. Plan is to proceed with a cardiac catheterization. I was consulted to manage her end-stage renal disease in the interim. MEDICATIONS: 1. Aspirin. 2. Advair. 3. Cardizem. 4. Allopurinol. 5. Rosuvastatin. SOCIAL HISTORY: Heavy smoker. No drug or alcohol abuse. PAST MEDICAL HISTORY: 1. Diabetes mellitus. 2. Hypertension. 3. Cardiomyopathy. 4. Status post appendectomy. 5. Right IJ tunneled catheter insertion. 6. C. diff in the past. 7. Gout. REVIEW OF SYSTEMS: GENERAL: No fever or chills. CARDIOVASCULAR: As per the history of present illness. PULMONARY: As per the history of present illness. GASTROINTESTINAL: No nausea or vomiting. GENITOURINARY: No frequency, no urgency. She still makes some urine. [facility] [address] [place] [address] CONSULTATION Name: KOURTNEY THOMAS Room #: 219-P [facility] IN [facility].#: [id number] Admission: 08/31/16 Attend Phys: Shahram Luis DO Discharge: 09/03/16 Date of : 45 Report #: [id number] FAMILY HISTORY: Significant for diabetes mellitus and hypertension. PHYSICAL EXAMINATION: VITAL SIGNS: Blood pressure is 135/85. HEAD AND NECK: No jugular venous distention, no bruit, no thyromegaly. CHEST: Clear to auscultation. CARDIOVASCULAR: No rub detected. ABDOMEN: Soft, nontender. LOWER EXTREMITIES: No edema. LABORATORY DATA: Laboratory values reviewed. As I have stated, her troponin was elevated. Creatinine is 2.3. BUN is 59. Imaging including a chest x-ray reviewed. ASSESSMENT, IMPRESSION AND PLAN: 1. End-stage renal disease. 2. Acute coronary syndrome. 3. Diabetes mellitus. 4. Hypertension. 5. Chronic obstructive pulmonary disease. 6. Dialysis will be arranged tomorrow. I had a lengthy discussion with the patient regarding her kidney function and the need for the cardiac catheterization. Discussed with Dr. Polk it is okay to proceed with the cardiac catheterization. <ELECTRONICALLY SIGNED> By: Lori Coronado MD 09/04/16 0830 0814 1402 Lori Coronado MD /nt
--- NOTE | ~2016-08-31 | EKG ---
[address] [place] [address] ELECTROCARDIOGRAM REPORT Name: JENNIFERMARYKOURTNEY KAY Room #: 219-P ADM IN M.R.#: [id number] Admission: 08/31/16 Attend Phys: Shahram Luis DO Discharge: Date of : 45 Report #: [id number] THIS REPORT FOR: //name// [facility] Test Date: 2016-09-01 Test Time: 06:20:39 Pat Name: KOURTNEY THOMAS Department: Room: 219 P Gender: F Private Duty Lpn: myke : 1945 Requested By: Errol Polk Order Number: [id number] MD: Errol Polk Measurements Intervals [place] Rate: 101 P: 77 MN: 170 QRS: -77 QRSD: 133 T: 261 QT: 443 QTc: 575 Interpretive Statements Sinus tachycardia RBBB and LAFB Abnormal T, consider ischemia, anterolateral leads Compared to ECG 07/01/2016 21:30:35 No significant change was found Electronically Signed On 09-01-2016 9:29:40 CDT by Errol Polk [email or web address] <ELECTRONICALLY SIGNED> By: Errol Polk MD, [facility] 09/01/16 0929 9 Errol Polk MD, [facility] /EPI
--- NOTE | ~2016-08-31 | HC ---
[facility] [place] [address] CONSULTATION Name: KOURTNEY THOMAS Room #: 219-P ADM IN M.R.#: [id number] Admission: 08/31/16 Attend Phys: Shahram Luis DO Discharge: Date of : 45 Report #: [id number] THIS REPORT FOR: //name// CC: Errol Brandon REASON FOR CONSULTATION: Chest pain. HISTORY OF PRESENT ILLNESS: The patient is a 71-year-old woman with a history of progressive renal dysfunction and end-stage renal disease for which she is on hemodialysis. Her history includes COPD, dyslipidemia and hypertension. She had most recently been seen by Dr. Hdz in June when she presented with chest pain and tiny troponin elevation. This was in the setting of near syncope, likely related to intravascular volume depletion. An echocardiogram in June of this year demonstrated an ejection fraction of 40% to 45% with apical akinesis. Her EKG demonstrated fairly prominent anterolateral ST and T-wave changes. There was also concern that this may have represented a stress induced or takotsubo cardiomyopathy. Medical therapy was recommended. She now presents with recurrent midsternal chest discomfort that occurred during dialysis yesterday. This pain waxed and waned throughout the day. She took an Patricia-Wilson and Tums with may be some relief, but the pain recurred. She was seen in the emergency department where a troponin was elevated at over 6. She is currently pain free. She denies orthopnea or paroxysmal nocturnal dyspnea. No history of recurrent near syncope or syncope. MEDICATIONS: Include Cardizem-CD 240 mg daily, rosuvastatin 10 mg daily, allopurinol 100 mg daily and aspirin, Advair 2 puffs twice daily and DuoNeb. PAST MEDICAL HISTORY: Her past history in medical records have been reviewed and include a history of hypertension, dyslipidemia, moderate cardiomyopathy, appendectomy, right hip repair, macular degeneration, history of C. difficile colitis, history of gout. SOCIAL HISTORY: She is a heavy smoker. She uses alcohol. Lives alone. FAMILY HISTORY: Unremarkable for premature coronary disease. REVIEW OF SYSTEMS: All systems negative except as that noted above. PHYSICAL EXAMINATION: GENERAL: This is a pleasant woman who is alert and in no distress. She is pain free. VITAL SIGNS: Blood pressure is 138/84, heart rate of 110 and regular. Temperature is 99 degrees. HEENT: There are neither xanthelasma, subcutaneous xanthomata, oral mucosal or [address] [address] CONSULTATION Name: KOURTNEY THOMAS Room #: 219-[facility] IN [facility].#: [id number] Admission: 08/31/16 Attend Phys: Shahram Luis DO Discharge: Date of : 45 Report #: [id number] digital cyanosis or kyphoscoliosis present. CHEST: Clear to auscultation and percussion. CARDIAC: Regular rate and rhythm with a normal S1, S2. ABDOMEN: Soft and nontender. EXTREMITIES: Without cyanosis, clubbing or edema. Radial pulses are 2+. NEUROLOGIC: She is alert with a nonfocal exam. RADIOLOGICAL AND LABORATORY DATA: Chest x-ray demonstrates no acute cardiopulmonary abnormality. Recent pharmacologic stress study demonstrated evidence of an apical infarct. This was an intermediate risk study. Sodium is 136, potassium 3.9, creatinine 2.6. Troponin 6.3. SGOT of 830. Total bilirubin of 1.6. SGPT 148. White count 11.2, hemoglobin 12, hematocrit 34, platelet count 266. CT scan in February of the abdomen demonstrated extensive vascular calcification in both kidneys. There is diffuse atherosclerosis of the aorta and mesenteric arteries. EKG sinus rhythm with anterolateral ST and T-wave abnormality, prolonged QT interval. IMPRESSION: 1. Non-Q-wave myocardial infarction. 2. Probable moderate ischemic cardiomyopathy, ejection fraction 40% range. 3. End-stage renal disease, on dialysis. 4. Chronic systolic heart failure. 5. Chronic obstructive pulmonary disease, current smoker. 6. Dyslipidemia. 7. Hypertension. 8. Diffuse atherosclerotic vascular disease. 9. Abnormal liver function studies. RECOMMENDATIONS: 1. IV heparin, topical nitroglycerin and aspirin. 2. Coronary angiography. I have had a brandon discussion with the patient with regards to this angiographic procedure and that contrast is likely to commit her to permanent hemodialysis. I have discussed this with Dr. Coronado who agrees with moving ahead with angiography. Every effort will be made to minimize contrast. 3. Repeat liver function studies. I would discuss this with Dr. Hdz who has followed the patient longitudinally. Thank you for asking me to participate in her care. <ELECTRONICALLY SIGNED> By: Errol Polk MD, [facility] 09/02/16 1637 1651 [id number] Errol Polk MD, FAC /nt
--- NOTE | ~2016-08-31 | EKG ---
[address] [place] [address] ELECTROCARDIOGRAM REPORT Name: KOURTNEY THOMAS Room #: 219-P ADM IN M.R.#: [id number] Admission: 08/31/16 Attend Phys: Shahram Luis DO Discharge: Date of : 45 Report #: [id number] THIS REPORT FOR: //name// [facility] ED Test Date: 2016-08-31 Test Time: 11:50:59 Pat Name: KOURTNEY THOMAS Department: Room: 219 Gender: F Garnett Feeder: CARMELA : 1945 Requested By: Murphy Feliciano Order Number: [id number] MD: Errol Polk Measurements Intervals [place] Rate: 100 P: 0 MO: 114 QRS: -73 QRSD: 132 T: 244 QT: 483 QTc: 624 Interpretive Statements Sinus tachycardia RBBB and LAFB Abnrm T, probable ischemia, anterolateral lds Compared to ECG 07/01/2016 21:30:35 No significant change was found Electronically Signed On 09-01-2016 9:25:01 CDT by Errol Polk [email or web address] <ELECTRONICALLY SIGNED> By: Errol Polk MD, [facility] 09/01/16 0925 1150 1150 Errol Polk MD, [facility] /EPI
--- NOTE | ~2016-08-31 | CATHLAB ---
[facility] [place] [address] INVASIVE PROCEDURE REPORT Name: MARTHAKOURTNEY OLINDA Room #: 219-P [facility] IN ..#: [id number] Admission: 08/31/16 Attend Phys: Shahram Luis, Discharge: Date of : 45 Date of Service: 09/01/162228 Report #: [id number] THIS REPORT FOR: //name// APPROVED REPORT Patient Details The patient is a 71 year-old female Event Personnel Rajendra Hdz Speech/Language Therapist Procedures Performed Left heart catheterization, selective left and right coronary angiography, measurement of ventricular end-diastolic pressure, supervision of conscious sedation, right iliac angiography Indication Non-STEMI (>24 hrs to = 48 hrs), Chest pain Procedure Narrative The Right Groin^ was infiltrated with 1% Lidocaine subcutaneous anesthesia. A PINNACLE 6FR Sheath #[id number] sheath was inserted into the RFA^. Coronary angiography was performed using coronary diagnostic catheters. The right coronary system was accessed and visualized with a JR4 catheter. The left coronary system was accessed and visualized with a JL4 catheter. The left ventricle was accessed and visualized with a PIGTAIL catheter. Left ventricular/Aortic Valve gradient assessed via catheter pullback. Hemostasis was obtained with manual pressure following sheath removal without any complications. The patient tolerated the procedure well and there were no complications associated with the procedure. There was no hematoma. Intraoperative Conscious Sedation Sedation start time: 12:33 Case end Time: 12:50 Versed 1.0 mg Fluoro Time: 3.36 minutes Dose: DAP 1581.90 cGycm2 207 mGy Contrast Type and Amount: Omnipaque 80 ml Diagnostic Cath Left Main Normal origin and caliber bifurcates that anterior [facility] [address] [place] [address] INVASIVE PROCEDURE REPORT Name: KOURTNEY THOMAS Room #: 219-P [facility] IN [facility].#: [id number] Admission: 08/31/16 Attend Phys: Shahram Luis, Discharge: Date of : 45 Date of Service: 09/01/16 2229 Report #: [id number] descending left circumflex. Distal 40-50% eccentric calcified plaque which is not flow-limiting is noted LAD Moderate caliber type II vessel which in distal portion of the proximal LAD there is an aneurysmal dilatation noted. The vessel then continues on as a tapering towards the apex giving rise to septal and diagonal branches Diagonal 1 Moderate to large caliber without high-grade lesions Circumflex Moderate caliber vessel which has a tortuosity and numerous 180 turns. Proximal turn has approximately 50% calcified lesion. There is then a bifurcation to a first and second marginal branch the first of which has a 60% lesion and there is a hairpin turn of the distal circumflex was a subtotal lesion in the mid circumflex. This lesion is not likely obtainable percutaneously OM1 Moderate proximal lesion noted Right Coronary Moderate to caliber vessel which at the acute margin has a high-grade subtotal lesion. The vessel continues on giving rise to posterior wall circulation R PDA Small hair-like vessels of diminutive Hemodynamics The aortic pressure is 130/58 mmHg with a mean of 89 mmHg. The left ventricular pressure is 137/-2 mmHg with a mean of mmHg. The left ventricular end diastolic pressure is 29 mmHg. There was no gradient across the aortic valve upon pullback. Pullback from the left ventricle to the aorta revealed no gradient across the aortic valve. Conclusion 1. Coronary artery disease severe three-vessel 2. Abnormal hemodynamics with elevated liver ventricular end-diastolic pressure 3. Options are to proceed with surgical revascularization to fully revascularize the ventricle. The presence of the hairpin turn in the circumflex makes it unlikely to have a successful dilatation percutaneously. The right coronary artery can be percutaneously approached but in the absence of total vascularization the long-term benefits are questionable to dilate only one vessel. Recommendations Medical Therapy CABG We'll discuss with the patient's DPOA [address] [address] INVASIVE PROCEDURE REPORT Name: KOURTNEY THOMAS Room #: 219-P [facility] IN M.R.#: [id number] Admission: 08/31/16 Attend Phys: Shahram Luis, Discharge: Date of : 45 Date of Service: 09/01/162228 Report #: [id number] Medications Administered Aspirin (any) Beta James (any) Clopidogrel <ELECTRONICALLY SIGNED> By: Rajendra Hdz MD 09/01/162228 28 28 Rajendra Hdz MD /INF
[2016-08-31 11:40] VITALS: BP 138/84
[~2016-08-31 11:40] MED LIST changes: +COREG6.25 MG PO
[2016-08-31 12:22] LABS: HEMATOCRIT 34.6 % (37.0-47.0); HEMOGLOBIN 12.2 gm/dL (12.0-15.0); MCH 34.7 pg (26.0-34.0); MCHC 35.3 g/dL (28.0-37.0); MCV 98.3 fL (80.0-100.0); PLATELET COUNT 266 thou/uL (150-400); RBC 3.53 mil/uL (4.20-5.00); RDW 16.7 % (10.5-14.5); WBC 11.2 thou/uL (4.0-11.0)
[2016-08-31 12:47] LABS: MANUAL DIFF YES
[2016-08-31 13:14] LABS: ALBUMIN 3.3 g/dL (3.4-5.0); CALCIUM 10.1 mg/dL (8.5-10.1); CREATININE 2.6 mg/dL (0.6-1.0); TOTAL BILIRUBIN 1.6 mg/dL (<0.1-1.0); TOTAL PROTEIN 7.4 g/dL (6.4-8.2)
[2016-08-31 13:36] LABS: POTASSIUM 3.9 mmol/L (3.5-5.1); TROPONIN-I 6.3 ng/mL (<0.04-0.07)
[2016-08-31 14:16] LABS: ABSOLUTE NEUTROPHILS 9.3 thou/uL (1.4-8.2); TOTAL CELL COUNT 100
[2016-08-31 14:17] LABS: ANISOCYTOSIS 1+
[2016-08-31 15:45] VITALS: BP 138/75
[2016-08-31 16:05] VITALS: BP 148/88
[2016-08-31 17:48] LABS: CHOLESTEROL 159 mg/dL (<200); TRIGLYCERIDE 268 mg/dL (<150); VLDL 54 mg/dL (<40)
[2016-08-31 17:51] LABS: HDL CHOLESTEROL 76 mg/dL (>40); LDL CHOLESTEROL 30 mg/dL (<100); TC:HDL 2.1 Ratio (Not establshd)
[2016-08-31 19:18] LABS: HEMATOCRIT 34.5 % (37.0-47.0); HEMOGLOBIN 11.8 gm/dL (12.0-15.0); MCH 34.6 pg (26.0-34.0); MCHC 34.3 g/dL (28.0-37.0); MCV 100.8 fL (80.0-100.0); PLATELET COUNT 242 thou/uL (150-400); RBC 3.42 mil/uL (4.20-5.00); RDW 16.7 % (10.5-14.5); WBC 10.6 thou/uL (4.0-11.0)
[2016-08-31 19:21] LABS: MANUAL DIFF YES
[2016-08-31 19:27] LABS: CALCIUM 10.4 mg/dL (8.5-10.1); POTASSIUM 4.1 mmol/L (3.5-5.1)
[2016-08-31 20:34] LABS: ABSOLUTE NEUTROPHILS 9.5 thou/uL (1.4-8.2); TOTAL CELL COUNT 100
[2016-08-31 20:35] LABS: ANISOCYTOSIS 1+
[2016-08-31 20:40] VITALS: BP 141/85
[2016-08-31 23:03] VITALS: BP 138/82
[2016-09-01] VITALS (15 sets, daily range): BP systolic 114–136; BP diastolic 67–88
[2016-09-01 04:57] LABS: POTASSIUM 4.1 mmol/L (3.5-5.1)
[2016-09-01 05:00] LABS: CREATININE 2.3 mg/dL (0.6-1.0)
[2016-09-01 05:27] LABS: ALBUMIN 3.5 g/dL (3.4-5.0); TOTAL PROTEIN 8.5 g/dL (6.4-8.2)
[2016-09-02 03:43] LABS: CALCIUM 9.6 mg/dL (8.5-10.1)
[2016-09-02 03:45] LABS: CREATININE 4.9 mg/dL (0.6-1.0)
[2016-09-02 03:55] LABS: HEMOGLOBIN 10.1 gm/dL (12.0-15.0); MCH 34.3 pg (26.0-34.0); MCHC 34.8 g/dL (28.0-37.0); MCV 98.6 fL (80.0-100.0); PLATELET COUNT 201 thou/uL (150-400); RBC 2.94 mil/uL (4.20-5.00); RDW 16.5 % (10.5-14.5); WBC 6.1 thou/uL (4.0-11.0)
[2016-09-02 04:26] LABS: MANUAL DIFF YES
[2016-09-02 05:07] VITALS: BP 115/79
[2016-09-02 05:28] LABS: ABSOLUTE NEUTROPHILS 5.3 thou/uL (1.4-8.2); ANISOCYTOSIS 1+; LARGE PLATELETS FEW; TOTAL CELL COUNT 100
[2016-09-02 07:11] VITALS: BP 126/77
[2016-09-02 11:35] VITALS: BP 137/73
[2016-09-02 15:00] VITALS: BP 109/60
[2016-09-02 19:34] VITALS: BP 111/63
[2016-09-02 23:38] VITALS: BP 111/73
[2016-09-03 03:27] VITALS: BP 116/71
[2016-09-03 07:42] VITALS: BP 129/71
[2016-09-03] MEDS ORDERED: ATORVASTATIN CA40 MG PO (10:25)
[2016-09-03] MEDS ORDERED: IMDUR 30 MG TAB30 M1 PO (10:25)
[2016-09-03] MEDS ORDERED: METOPROLOL SUCC25 M1 PO (10:25)
[2016-09-03 10:47] VITALS: BP 129/71
[2016-09-03 10:49] VITALS: BP 129/71
== END 2016-09-03 13:00 | disposition home or self-care (01) | DRG 280 ==
LOC: ER 11:40 → EROBS 14:09 → 2N 14:09
PROVIDERS: Family Medicine; Internal Medicine; Physician Assistant
PROC: B2151ZZ Fluoroscopy of Left Heart using Low Osmolar Contrast (ICD-10-PCS; principal; 2016-09-01)
PROC: 4A023N7 Measurement of Cardiac Sampling and Pressure, Left Heart, Percutaneous Approach (ICD-10-PCS; principal; 2016-09-01)
PROC: B2111ZZ Fluoroscopy of Multiple Coronary Arteries using Low Osmolar Contrast (ICD-10-PCS; principal; 2016-09-01)
DX: I21.4 Non-ST elevation (NSTEMI) myocardial infarction (principal); N18.6 End stage renal disease; E43 Unspecified severe protein-calorie malnutrition; I13.2 Hypertensive heart and chronic kidney disease with heart failure and with stage 5 chronic kidney disease, or end stage renal disease; I50.22 Chronic systolic (congestive) heart failure; Z68.1 Body mass index [BMI] 19.9 or less, adult; I25.5 Ischemic cardiomyopathy; M10.9 Gout, unspecified; E11.22 Type 2 diabetes mellitus with diabetic chronic kidney disease; H35.30 Unspecified macular degeneration; I25.10 Atherosclerotic heart disease of native coronary artery without angina pectoris; J44.9 Chronic obstructive pulmonary disease, unspecified; E78.5 Hyperlipidemia, unspecified; F17.210 Nicotine dependence, cigarettes, uncomplicated; Z99.2 Dependence on renal dialysis; Z90.49 Acquired absence of other specified parts of digestive tract; Z79.51 Long term (current) use of inhaled steroids; Z79.82 Long term (current) use of aspirin; Z79.899 Other long term (current) drug therapy; Z83.3 Family history of diabetes mellitus; Z82.49 Family history of ischemic heart disease and other diseases of the circulatory system
CPT/HCPCS: 10081; 32100

== ENCOUNTER 2017-09-12 11:55 | Emergency (ER) | payer OTHER ==
[~2017-09-12] VITALS: Ht 160 cm; Wt 47.6 kg
[~2017-09-12 11:55] MED LIST changes: +ATORVASTATIN CA40 MG PO; +IMDUR 30 MG TAB30 M1 PO; +METOPROLOL SUCC25 M1 PO
[2017-09-12] MEDS ORDERED: IMDUR 60 MG TAB60 M1 PO (14:35)
[2017-09-12] MEDS ORDERED: PLAVIX 75 MG TA75 M1 PO (14:36)
[2017-09-12 14:37] LABS: ABSOLUTE NEUTROPHILS 3.1 thou/uL (1.4-8.2); EOSINOPHILS 0.4 % (0.0-3.0); HEMATOCRIT 23.1 % (37.0-47.0); HEMOGLOBIN 7.7 gm/dL (12.0-15.0); LYMPHOCYTES 13.5 % (24.0-44.0); MCH 30.8 pg (26.0-34.0); MCHC 33.3 g/dL (28.0-37.0); MCV 92.3 fL (80.0-100.0); MONOCYTES 7.1 % (1.0-8.0); PLATELET COUNT 263 thou/uL (150-400); RDW 16.8 % (10.5-14.5)
[2017-09-12] MEDS ORDERED: ASPIRIN81 M2 PO (14:37)
[2017-09-12] MEDS ORDERED: LIPITOR80 MG PO (14:37)
[2017-09-12] MEDS ORDERED: [UNRECOGNIZED DRUG - OTHER] PO (14:42)
[2017-09-12] MEDS ORDERED: TESSALON PERLE100 MG PO (14:43)
[2017-09-12] MEDS ORDERED: ACIDOPHILUS1 EACH PO (14:43)
[2017-09-12] MEDS ORDERED: IRON325 PO (14:44)
[2017-09-12 14:45] LABS: CALCIUM 9.7 mg/dL (8.5-10.1); CREATININE 2.5 mg/dL (0.6-1.0); POTASSIUM 4.4 mmol/L (3.5-5.1)
[2017-09-12] MEDS ORDERED: OXYGEN MISCELL (14:45)
[2017-09-12] MEDS ORDERED: JUVEN PACKET1 EAC1 PO (14:45)
== END 2017-09-12 17:10 | disposition home or self-care (01) ==
LOC: ER 11:55
PROVIDERS: Emergency Medicine
DX: D58.9 Hereditary hemolytic anemia, unspecified (principal); F17.210 Nicotine dependence, cigarettes, uncomplicated; I10 Essential (primary) hypertension; M10.9 Gout, unspecified; H35.30 Unspecified macular degeneration; Z88.8 Allergy status to other drugs, medicaments and biological substances; J44.9 Chronic obstructive pulmonary disease, unspecified; I25.5 Ischemic cardiomyopathy

== ENCOUNTER 2018-02-20 18:19 | Inpatient (IN) | payer OTHER ==
[~2018-02-20] VITALS: Ht 160 cm; Wt 47.6 kg
[~2018-02-20 18:19] MED LIST changes: +ACIDOPHILUS1 EACH PO; +ASPIRIN81 M2 PO; +IMDUR 60 MG TAB60 M1 PO; +IRON325 PO; +JUVEN PACKET1 EAC1 PO; +LIPITOR80 MG PO; +OXYGEN MISCELL; +TESSALON PERLE100 MG PO; +[UNRECOGNIZED DRUG - OTHER] PO
[2018-02-20 18:21] VITALS: BP 150/68
--- NOTE | 2018-02-20 18:40 | NUR ---
CHARGE NURSE MADE AWARE OF PT'S NEED OF O2 AND NO POWER. CALL PLACED TO MENTAL HEALTH PRACTITIONER
--- NOTE | 2018-02-20 19:13 | NUR ---
CALL PLACED TO MEHRAN CASTELLANOS TO ATTEMPT TO GET TANKS FOR PT
--- NOTE | 2018-02-20 19:59 | NUR ---
TALKED WITH MEHRAN AND INFORMED OF PT'S ADMISSION
--- NOTE | 2018-02-20 19:59 | NUR ---
VENIPUNCTURE X 2 FOR IV WITHOUT SUCESS.
[2018-02-20 20:21] LABS: ABSOLUTE NEUTROPHILS 3.7 thou/uL (1.4-8.2); BASOPHILS 0.7 % (0.0-2.0); EOSINOPHILS 1.4 % (0.0-3.0); HEMATOCRIT 33.7 % (37.0-47.0); HEMOGLOBIN 11.1 gm/dL (12.0-15.0); LYMPHOCYTES 11.1 % (24.0-44.0); MCH 30.4 pg (26.0-34.0); MCHC 32.8 g/dL (28.0-37.0); MCV 92.5 fL (80.0-100.0); MONOCYTES 7.6 % (1.0-8.0); PLATELET COUNT 205 thou/uL (150-400); POLYS 79.2 % (36.0-66.0); RBC 3.65 mil/uL (4.20-5.00); RDW 18.8 % (10.5-14.5); WBC 4.7 thou/uL (4.0-11.0)
[2018-02-20 20:44] LABS: ANION GAP 11 mmol/L (7-16); BUN 32 mg/dL (7-18); CALCIUM 9.2 mg/dL (8.5-10.1); CHLORIDE 92 mmol/L (98-107); CO2 28 mmol/L (21-32); CREATININE 4.2 mg/dL (0.6-1.0); GLUCOSE 100 mg/dL (74-106); POTASSIUM 3.8 mmol/L (3.5-5.1); SODIUM 131 mmol/L (136-145)
[2018-02-20 20:53] LABS: ALBUMIN 3.3 g/dL (3.4-5.0); SGOT 19 U/L (15-37); SGPT 18 U/L (30-65); TOTAL BILIRUBIN 0.4 mg/dL (<0.1-1.0); TOTAL PROTEIN 6.8 g/dL (6.4-8.2); TROPONIN-I <0.06 ng/mL (<0.06)
[2018-02-20 21:35] VITALS: BP 152/88
[2018-02-20 23:10] VITALS: BP 153/74
--- NOTE | 2018-02-21 02:02 | EKG ---
[place] [address] [facility] [place] [address] ELECTROCARDIOGRAM REPORT Name: KOURTNEY THOMAS Room #: 423-1 ADM IN M.R.#: [id number] Admission: 02/20/18 Attend Phys: Surjit Mckinley MD Discharge: Date of : 45 Report #: [id number] THIS REPORT FOR: //name// [facility] ED Test Date: 2018-02-20 Test Time: 19:22:47 Pat Name: KOURTNEY THOMAS Department: Room: [facility] Gender: F Surgeon/President: MARYA : 1945 Requested By: Shaniqua Gonzalez Order Number: [id number] MD: Rajednra Hdz Measurements Intervals [place] Rate: 79 P: 48 [place]: 155 QRS: -82 QRSD: 140 T: 29 QT: 460 QTc: 528 Interpretive Statements Sinus rhythm Right bundle branch block Left axis deviation Left anterior fascicular block Nonspecific ST-T wave changes Compared to ECG 09/01/2016 06:20:39 Sinus tachycardia no longer present T-wave abnormality no longer present Electronically Signed On 02-21-2018 2:02:36 [employer]IL RECOV[employer] UNIT OPERATOR by Rajendra Hdz [email or web address] <ELECTRONICALLY SIGNED> By: Rajendra Hdz MD 02/21/18201 21 21 Rajendra Hdz MD /EPI
[2018-02-21 03:50] VITALS: BP 142/77
--- NOTE | 2018-02-21 04:16 | NUR ---
PT WAS ADMITTED TO THE UNIT FROM THE ER AT APPROX 2220 IN A STABLE CONDITION.ADMISSION HX,ASSESSMENT AND EDUCATION COMPLETED.PT DENIED PAIN ON ADMISSION.PT ON 02 AT 2L/NC.DIALYSIS ASSESS ON HER L ARM.PT SLEEPING ON HER BED AT THIS TIME.CALL LIGHT WITHIN REACH.
--- NOTE | 2018-02-21 08:36 | NUR ---
ASSESMENT COMPLETED. VSS. DENIES PAIN. NO NOTED SOA. NO NV. PT WANTING TO DC HOME TODAY. REFUSING MEDS AT THIS TIME. PT RESTING IN BED AT THIS TIME. WILL CONT. TO MONITOR.
[2018-02-21 19:40] VITALS: BP 147/79
[2018-02-22 04:27] VITALS: BP 140/71
--- NOTE | 2018-02-22 06:13 | NUR ---
PROGRESS PT A/O X4. HAD DIALYSIS LAST EVENING ENDED AT 1900 1500CC'S REMOVED, PT TOLERATED WELL. ON 2 LITERS OF O2 AT ALL TIMES. SOB WITH EXERTION BUT GAIT STEADY UP AD JOEL GAIT STEADY. DENIES PAIN HOPES TO DISCHARGE HOME TODAY IF POWER IS BACK ON.
[2018-02-22 07:40] VITALS: BP 136/64
--- NOTE | 2018-02-22 12:24 | NUR ---
ASSUMED CARE OF PT AT 0700. ASSESSMENT COMPLETED AND CHARTED. PT DENIES PAIN, N/V/D. DOES NOT APPEAR TO BE IN ANY DISTRESS. [address], BASELINE OXYGEN USE AT HOME. HX COPD. HX DIALYSIS, SHERRY FISTULA AND ANURIA NOTED. NO SOA OR CHEST PAIN. ACTIVE BOWEL SOUNDS, LAST BM YESTERDAY. SKIN INTACT. WILL CONTINUE TO MONITOR.
--- NOTE | 2018-02-22 13:04 | NUR ---
Assess due to low BMI 18.6. Admit with copd, weakness. Visit at lunch time and pt demonstrating healthy appetite. Had no complaints. Has been thin several years usual 95-105 lb. Low nutrition risk
--- NOTE | 2018-02-22 17:53 | NUR ---
PT ADMITTED RELTAED TO OXYGEN DEPENDENT, COPD, WEAKNESS, CRF, FALL RISK. REVIEWED CHART AND SPOKE WITH CARE TEAM. NURSE CM MET WITH PT AT BEDSIDE THIS DAY. PT IS A&O X4. CM ROLE INTRODUCED. PT INDICATED SHE LIVES IN HOUSE. PT HAS 01/09 PRIVATELY CONTRACTED CAREGIVERS. [facility] , SAT 11:00 CHAIR TIME. PT HAS BEEN TO [facility] IN THE PAST AND HAS HAD [facility]. PT HAS A WALKER, GRAB BARS, SHOWER CHAIRS, AND HOME O2 THROUGH [facility]. PT AD LOST POWER THE PLAN IS FOR PT'S CAREGIVER TO COME HERE TOMORROW AT 10:00 THEY WILL BOOK A SUITE AT [place] IN AND SUITES FOR PT AND HER CAREGIVER. THEY WILL GO THERE AFTER PT'S DIALYSIS TREATMENT. CM TO FOLLOW INDICATED WITH DC PLANNING.
--- NOTE | 2018-02-22 19:07 | NUR ---
END OF SHIFT. NO CHANGE IN PT STATUS. DENIES PAIN, N/V. MAINTAIN 2 L NC.
[2018-02-22 19:21] VITALS: BP 155/74
--- NOTE | 2018-02-23 04:04 | NUR ---
ASSUMED CARE AT 1900, ASSESSMENT COMPLETED. PT DENIES PAIN, NAUSEA, OR SOB. STATES SHE FEELS SLIGHTLY WEAK, BUT CALLS APPROPRIATELY FOR ASSISTANCE. ANURIC, WILL HAVE DIALYSIS IN THE AM WITH DISCHARGE AFTER--DEPENDING ON IF POWER IS IN HER HOUSE YET, MAY D/C TO A HOTEL WITH A CAREGIVER. NO OTHER CONCERNS, WILL CONTINUE TO MONITOR.
[2018-02-23 04:47] VITALS: BP 148/63
[2018-02-23 07:50] VITALS: BP 144/67
[2018-02-23 09:08] LABS: HEPATITIS B SURFACE AG Negative (Negative)
[2018-02-23 10:13] VITALS: BP 144/66
[2018-02-23 10:17] VITALS: BP 144/66
[2018-02-23 11:20] VITALS: BP 144/66
[2018-02-23 11:24] VITALS: BP 144/66
--- NOTE | 2018-02-23 11:25 | NUR ---
PT DISCHARGED WITH CAREGIVERS AT 1035. PT TO GO TO [facility] AND THEN IS GOING TO [facility] WITH CAREGIVERS. IV ACSESS DCD PT W/O PAIN OR RESP DISTRESS AT DISCHARGE
--- NOTE | 2018-02-23 13:20 | NUR ---
Pt d/c home this morning and was taken to [facility] for her dialysis. Received call from her caregiver stating that pt had not made reservations at [facility] and that [facility] has no availability. Recreational Assistant called [facility] and spoke with Elda. Elda is going to call pt's caregiver to make arrangements for pt to go to [facility] for respite care until her electricity is restored. Dia (caregiver) [phone]
== END 2018-02-23 10:35 | disposition home or self-care (01) | DRG 682 ==
LOC: ER 18:19 → 4E 20:56 → EROBS 20:56 → 4E 22:03
PROVIDERS: Internal Medicine Nephrology; Physician Assistant; ADMIT Internal Medicine
PROC: 5A1D70Z Performance of Urinary Filtration, Intermittent, Less than 6 Hours Per Day (ICD-10-PCS; principal; 2018-02-21)
DX: I12.0 Hypertensive chronic kidney disease with stage 5 chronic kidney disease or end stage renal disease (principal); N18.6 End stage renal disease; E87.1 Hypo-osmolality and hyponatremia; J96.11 Chronic respiratory failure with hypoxia; E46 Unspecified protein-calorie malnutrition; Z68.1 Body mass index [BMI] 19.9 or less, adult; I25.10 Atherosclerotic heart disease of native coronary artery without angina pectoris; E78.5 Hyperlipidemia, unspecified; M62.84 Sarcopenia; I25.5 Ischemic cardiomyopathy; M10.9 Gout, unspecified; D63.8 Anemia in other chronic diseases classified elsewhere; H35.30 Unspecified macular degeneration; J44.9 Chronic obstructive pulmonary disease, unspecified; Z99.81 Dependence on supplemental oxygen; Z99.2 Dependence on renal dialysis; Z88.8 Allergy status to other drugs, medicaments and biological substances; Z87.891 Personal history of nicotine dependence; Z90.49 Acquired absence of other specified parts of digestive tract
CPT/HCPCS: 10183; 10783; 32100

== ENCOUNTER 2019-02-06 11:00 | Inpatient (IN) | payer OTHER ==
[~2019-02-06] VITALS: Ht 160 cm; Wt 36.7 kg
--- NOTE | ~2019-02-06 | HC ---
[facility] [place] [address] CONSULTATION Name: KOURTNEY THOMAS Room #: 212-P ADM IN M.R.#: [id number] Admission: 02/06/19 Attend Phys: Murphy Martell MD Discharge: Date of : 45 Report #: [id number] THIS REPORT FOR: //name// CC: Murphy Blackburn REASON FOR CONSULTATION: End-stage renal disease. REASON FOR PRESENTATION: Shortness of breath. HISTORY OF PRESENT ILLNESS: This is a very well-known patient to me. She is in end-stage renal disease, on hemodialysis every Thursday, , and Thursday. She has terminal COPD, coronary artery disease. She was not feeling well over the last few days. She reported to cough and shortness of breath. She also reported to decreased stamina with weakness. She is a COPD patient, who is oxygen dependent. She was admitted to be further evaluated yesterday. She has cardiomyopathy with an ejection fraction of around 40-45%. She is currently being treated as a potential pneumonitis. I am being asked to evaluate her dialysis need. PAST MEDICAL HISTORY: Extensive and includes the followin. End-stage renal disease. 2. Chronic obstructive pulmonary disease. 3. Diabetes mellitus. 4. Remote history of C. diff. MEDICATIONS: 1. Midodrine. 2. Plavix. 3. Atorvastatin. 4. Metoprolol. 5. Aspirin. 6. Allopurinol. PAST SURGICAL HISTORY: 1. AV fistula. 2. Multiple cardiac catheterizations. FAMILY HISTORY: Unknown. The patient is adopted. SOCIAL HISTORY: No drug or alcohol abuse. REVIEW OF SYSTEMS: GENERAL: No fever, but significant weakness and fatigue. CARDIOVASCULAR: Significant for shortness of breath. No chest pain. PULMONARY: Significant for cough and shortness of breath with dyspnea on exertion. [facility] [address] [place] [address] CONSULTATION Name: KOURTNEY THOMAS Room #: 212-P [facility] IN [facility]#: [id number] Admission: 02/06/19 Attend Phys: Murphy Martell MD Discharge: Date of : 45 Report #: [id number] GASTROINTESTINAL: Reduced oral intake. GENITOURINARY: No frequency, no urgency. MUSCULOSKELETAL: Significant myalgias. NEUROLOGICAL: No headache, no dizziness. PHYSICAL EXAMINATION: GENERAL: She is alert and oriented. VITAL SIGNS: Blood pressure is 116/62. HEAD AND NECK: No jugular venous distention. CHEST: No crackles. Occasional wheezes. Decreased air entry on the right base. CARDIOVASCULAR: No rub. Systolic murmur present. ABDOMEN: Soft and nontender. EXTREMITIES: Lower extremities, no edema. IMPRESSION AND PLAN: 1. End-stage renal disease. 2. Terminal COPD, oxygen dependent. 3. Hyperlipidemia. 4. Coronary artery disease. 5. Arrangement for dialysis will be made for tomorrow. 6. Currently, the patient is being treated as a potential pneumonitis given her chest x-ray finding. 7. Unclear reasons to me why the patient is on midodrine and I will discontinue that. 8. Continue with the usual treatment for her coronary artery disease including beta roxanna, aspirin, and statin. By: 0816 0849 Lori Coronado MD /nt
--- NOTE | ~2019-02-06 | HC ---
[facility] [place] [address] CONSULTATION Name: KOURTNEY THOMAS Room #: 452-P ADM IN M.R.#: [id number] Admission: 02/06/19 Attend Phys: Murphy Martell MD Discharge: Date of : 45 Report #: [id number] THIS REPORT FOR: //name// CC: Murphy Krishnamurthy [facility] PALLIATIVE CARE CONSULTATION REQUESTING PHYSICIAN: Dr. Martell. CHIEF COMPLAINT: Acute on chronic hypoxic respiratory failure. HISTORY OF PRESENT ILLNESS: The patient is a 73-year-old female who presented with multiple medical problems including end-stage COPD. She has a history of end-stage renal failure, currently on dialysis, recurrent hypotension and she also has severe delirium at this time. The patient had apparently been able to do her own bill paying at home, was ambulatory at home per her DPOA; however, she does have significant disease processes. It is unknown exactly why her current condition has worsened significantly, but she did have dosing of medications, which is what her DPOA is concerned about potentially causing or at least exacerbating the previous delirium and he wished to continue current management. I am unable to obtain information from the patient at this time. PAST MEDICAL HISTORY: Chronic hypoxic hypercapnic respiratory failure; recurrent right-sided pleural effusion; end-stage renal disease; coronary artery disease, severe 3-vessel with medical management; anemia; leukopenia and thrombocytopenia; pancytopenia. SOCIAL HISTORY: DNR currently, durable power of criminal defense attorney I have spoken with today. She has 24-hour caregiving at home. ALLERGIES: LISINOPRIL. MEDICATIONS AT HOME: Midodrine, Plavix, atorvastatin, metoprolol, aspirin and allopurinol. Here she had Ativan and morphine. PAST SURGICAL HISTORY: AV fistula, multiple cardiac catheterizations. FAMILY HISTORY: Unknown. REVIEW OF SYSTEMS: Unable to obtain due to present medical condition. PHYSICAL EXAMINATION: VITAL SIGNS: Include temperature 36.7, pulse 95, respirations 16, blood pressure 129/51, 94% on nasal cannula O2, currently 3 liters. GENERAL: Not alert, not able to assess orientation at this time. She is not able to follow commands. [facility] [address] [place] [address] CONSULTATION Name: KUORTNEY THOMAS Room #: 452-P [facility] IN [facility].#: [id number] Admission: 02/06/19 Attend Phys: Murphy Martell MD Discharge: Date of : 45 Report #: [id number] HEENT: No scleral icterus. No conjunctival injection. CARDIOVASCULAR: Regular rate and rhythm without murmur. LUNGS: Anteriorly clear, though she does have occasional respiratory distress, no accessory muscle use. ABDOMEN: Soft, mild distention. Diminished bowel sounds. INTEGUMENTARY: No apparent edema in lower extremities noted. She has warm extremities with normal peripheral pulses currently. LABORATORY DATA: As on 02/12/2019, she had a pH 7.318 and CO2 is 53.1. ASSESSMENT AND PLAN: 1. Acute on chronic combined respiratory failure. I appreciate Pulmonary input with regard to her care. It does appear that she has severe chronic obstructive pulmonary disease and that overall long-term prognosis may be poor. It appears that the durable power of criminal defense attorney wishes to pursue dialysis at least for a couple of additional days or possibly two additional treatments. This sounds like it was discussed with Dr. Coronado today per DPOA's recollection that they would like to continue for 2 additional days. Due to this, I feel that stopping Ativan given her delirium is reasonable. I would keep morphine in case of worsening overall respiratory status as she was intolerant of BiPAP. 2. Chronic obstructive pulmonary disease with exacerbation, again intolerance of BiPAP, on nasal cannula, but low dosing currently. DPOA is okay with not pursuing the BiPAP or intubation and again DNR code status is confirmed currently. Morphine for respiratory discomfort, but would stop Ativan given delirium. 3. Delirium as above. 4. End-stage renal disease. At this time, it sounds like we will continue a few more days of dialysis if no significant recovery in condition. It sounds like the DPOA would be favorable of supporting a palliative care regimen, potentially could go to a home setting or even inpatient hospice house. Thank you very much for this consultation. We will follow up in a couple of days to see if the patient's overall has had a worsened status. I did do a capacity evaluation today and the patient is incapacitated from medical and financial decisions for the foreseeable future. Unknown if she will recover this. By: 2224 0209 Doni Warren DO /nt
[2019-02-06 11:03] VITALS: BP 124/61
[2019-02-06 12:02] LABS: CALCIUM 9.7 mg/dL (8.5-10.1); CREATININE 2.6 mg/dL (0.6-1.0); POTASSIUM 3.5 mmol/L (3.5-5.1)
[2019-02-06 12:03] LABS: ABSOLUTE NEUTROPHILS 3.9 thou/uL (1.4-8.2); BASOPHILS 0.4 % (0.0-2.0); HEMATOCRIT 33.4 % (37.0-47.0); HEMOGLOBIN 10.7 gm/dL (12.0-15.0); LYMPHOCYTES 3.7 % (24.0-44.0); MCH 33.7 pg (26.0-34.0); MCHC 32.2 g/dL (28.0-37.0); MCV 104.8 fL (80.0-100.0); MONOCYTES 7.7 % (1.0-8.0); PLATELET COUNT 146 thou/uL (150-400); POLYS 88.2 % (36.0-66.0); RBC 3.19 mil/uL (4.20-5.00); RDW 16.4 % (10.5-14.5); WBC 4.5 thou/uL (4.0-11.0)
[2019-02-06 12:11] LABS: TROPONIN-I 0.55 ng/mL (<0.06)
[2019-02-06] MEDS ORDERED: PROCRIT10000 UNIT INJECTION (12:52)
[2019-02-06] MEDS ORDERED: MIDODRINE HCL 55 M1 PO (12:53)
[2019-02-06] MEDS ORDERED: OXYGEN MISCELL (12:54)
[2019-02-06] MEDS ORDERED: ANORO ELLIPTA1 EACH INH (12:56)
[2019-02-06] MEDS ORDERED: PROVENTIL HFA6.7 G1 INH (12:57)
[2019-02-06 14:40] VITALS: BP 131/71
[2019-02-06 15:10] VITALS: BP 126/71
[2019-02-06 16:45] LABS: ALBUMIN 2.9 g/dL (3.4-5.0); TOTAL PROTEIN 6.5 g/dL (6.4-8.2)
[2019-02-06 17:00] VITALS: BP 123/64
[2019-02-06 17:10] LABS: TSH 0.783 uIU/mL (0.358-3.740)
--- NOTE | 2019-02-06 19:13 | NUR ---
PT ADMITED FROM ER. ADMISSION HX AND ASSESSMENT COMPLETED. VSS. DENIED HAVING PAIN OR DISCOMFORT. PT ORIENTED TO THE ROOM AND THE CALL LIGHT SYSTEM. CONTACT ISOLATION MAINTAINED. WILL CONTINUE TO MONITOR.
[2019-02-06 19:21] VITALS: BP 109/64
[2019-02-07] VITALS (7 sets, daily range): BP systolic 76–120; BP diastolic 40–83
--- NOTE | 2019-02-07 04:50 | NUR ---
ASSUMED PT CARE AROUND 1900. PT IS ABLE TO ANSWER MOST ORIENTATION QUESTIONS; PT HAS HAD PERIODS OF CONFUSION AND FORGETFULNESS DURING THE NIGHT. NO C/O PAIN. SOA W/ EXERTION. VSS. PT DID NOT SLEEP MUCH DURING THE NIGHT. FALL PRECAUTIONS IN PLACE. PROGRESSING SLOWLY TOWARD POC GOALS.
[2019-02-07 13:10] LABS: CALCIUM 9.1 mg/dL (8.5-10.1); CREATININE 3.5 mg/dL (0.6-1.0); MAGNESIUM 1.7 mg/dL (1.8-2.4); POTASSIUM 4.2 mmol/L (3.5-5.1)
--- NOTE | 2019-02-07 15:13 | 2DMMODE ---
[facility] [address] [place] [address] 2 D/M-MODE ECHOCARDIOGRAM Name: JENNIFERMARYKOURTNEY OLINDA Room #: 212-P ADM IN M.R.#: [id number] Admission: 02/06/19 Attend Phys: Murphy Martell, Discharge: Date of : 45 Report #: [id number] THIS REPORT FOR: //name// APPROVED REPORT Study performed: 02/07/2019 13:49:00 EXAM: Comprehensive 2D, Doppler, and color-flow Echocardiogram Patient Location: Bedside Room #: 212 Status: routine BSA: 1.45 HR: 95 bpm BP: 103/50 mmHg Other Information Study Quality: Fair Technically limited study due to thin body habitus, limited cooperation. Indications Cardiomyopathy, elevated troponin. Hx: CAD, HTN, HLP, COPD 2D Dimensions RVDd: 42.38 mm IVSd: 11.49 (7-11mm) LVOT Diam: 18.98 (18-24mm) LVDd: 43.39 mm PWd: 9.97 (7-11mm) LVDs: 35.08 (25-40mm) Aortic Root: 32.76 mm Volumes Left Atrial Volume (Systole) Single Plane 4CH: 38.70 mL Single Plane 2CH: 39.89 mL LA ESV Index: 32.00 mL/m2 Aortic Valve AoV Peak Arthur.: 1.14 m/s AO Peak Gr.: 5.23 mmHg LVOT Max P.61 mmHg LVOT Max V: 0.81 m/s LETY Vmax: 2.00 cm2 Mitral Valve E/A Ratio: 0.[address] [facility] [address] [place] [address] 2 D/M-MODE ECHOCARDIOGRAM Name: KOURTNEY THOMAS Room #: 212-P [facility] IN [facility]#: [id number] Admission: 02/06/19 Attend Phys: Murphy Martell, Discharge: Date of : 45 Report #: [id number] MV Decel. Time: 129.72 ms MV E Max Arthur.: 0.83 m/s MV A Arthur.: 0.94 m/s MV PHT: 37.62 ms IVRT: 78.43 ms Pulmonary Valve PV Peak Arthur.: 0.79 m/s PV Peak Gr.: 2.49 mmHg Tricuspid Valve TR Peak Arthur.: 3.19 m/s RAP Estimate: 15.00 mmHg TR Peak Gr.: 41.00 mmHg PA Pressure: 56.00 mmHg Left Ventricle The left ventricle is normal size. There is normal LV segmental wall motion. There is normal left ventricular wall thickness. Left ventricular systolic function is at the lower limits of normal. LVEF is 50-55%. Mild diastolic dysfunction is present (impaired relaxation pattern). Right Ventricle Right ventricle is dilated. Right ventricle is hypokinetic. Atria Left atrium is at the upper limits of normal. Right atrium is dilated. Aortic Valve The aortic valve is trileaflet, mildly sclerotic. No aortic regurgitation is present. There is no aortic valvular stenosis. Mitral Valve Moderate mitral annular calcification. Mild mitral regurgitation. No evidence of mitral valve stenosis. Tricuspid Valve The tricuspid valve is normal in structure. Moderate to severe tricuspid regurgitation. Estimated PAP is 55mmHg. Pulmonic Valve The pulmonary valve is normal in structure. Trace pulmonic regurgitation. [facility] [address] [place] [address] 2 D/M-MODE ECHOCARDIOGRAM Name: KOURTNEY THOMAS Room #: 212-P ADM IN M.R.#: [id number] Admission: 02/06/19 Attend Phys: Murphy Martell, Discharge: Date of : 45 Report #: [id number] Great Vessels The aortic root is normal in size. Ascending aorta is not well visualized. IVC is dilated and collapses <50% with inspiration. Pericardium There is no pericardial effusion. <Conclusion> Left ventricular systolic function is at the lower limits of normal. There is normal LV segmental wall motion. LVEF is 50-55%. Mild diastolic dysfunction Right ventricle is dilated and hypokinetic. Right atrium is dilated. The aortic valve is trileaflet, mildly sclerotic. No aortic regurgitation or stenosis. Moderate mitral annular calcification. Mild mitral regurgitation. Moderate to severe tricuspid regurgitation. Estimated pulmonary arterypressure of 55mmHg. There is no pericardial effusion. <ELECTRONICALLY SIGNED> By: Errol Polk MD, FACC 02/07/191511 11 11 Errol Polk MD, FACC /INF
[2019-02-07 15:51] LABS: HEMATOCRIT 28.4 % (37.0-47.0); HEMOGLOBIN 8.9 gm/dL (12.0-15.0); MCH 33.5 pg (26.0-34.0); MCHC 31.3 g/dL (28.0-37.0); MCV 106.8 fL (80.0-100.0); RBC 2.65 mil/uL (4.20-5.00); RDW 16.7 % (10.5-14.5); WBC 2.8 thou/uL (4.0-11.0)
--- NOTE | 2019-02-07 16:55 | NUR ---
ASSESSMENT CHARTED PT ALERT AND ORIENTED TO SELF. VERY CONFUSED THIS SHIFT. DR JENNINGS NOTIFIED. EVALUATED BY PT/OT AND SPEECH. UP IN THE CHAIR THIS SHIFT. WILL CONTINUE TO MONITOR.
[2019-02-08] VITALS (47 sets, daily range): BP systolic 81–104; BP diastolic 38–61
--- NOTE | 2019-02-08 07:53 | NUR ---
PATIENT ALERT,FORGETFUL AND CONFUSED.BP LOW THIS SHIFT.ABLE TO GET AN ORDER FOR MIDODRINE AND GAVE THIS AM.ANURIC.RSV PANEL SWAB SENT TO LAB.POC CONTINUED.REPORT GIVEN TO DAY SHIFT RN.
--- NOTE | 2019-02-08 09:57 | NUR ---
Met with patient and spoke with DPOA Dr Lockhart. CARD MOUNTER patient resides at home with / care. Patient uses a walker for amnbulation. She has home oxygen usu at 2-2.5 liters. She dializes at [facility] t,th, sat and driven by caregivers in car to/from dialysis. Patient has therapy 2x a week with her personal service workers. Plan home once stable. Dia caregiver [phone]
--- NOTE | 2019-02-08 10:08 | EKG ---
[address] [place] [address] ELECTROCARDIOGRAM REPORT Name: KOURTNEY THOMAS Room #: 212- ADM IN M.R.#: [id number] Admission: 02/06/19 Attend Phys: Murphy Martell MD Discharge: Date of : 45 Report #: [id number] THIS REPORT FOR: //name// [facility] Test Date: 2019-02-08 Test Time: 08:08:33 Pat Name: KOURTNEY THOMAS Department: Room: 212 Gender: F Yacht Captain: NAVDEEP : 1945 Requested By: Batool Fox Order Number: [id number] MD: Errol Polk Measurements Intervals [place] Rate: 90 P: 30 IN: 158 QRS: -68 QRSD: 145 T: -73 QT: 449 QTc: 550 Interpretive Statements Sinus rhythm RBBB and LAFB Abnrm T, consider ischemia, anterolateral lds Compared to ECG 02/20/2018 19:22:47 Premature ventricular complexes are no longer present Electronically Signed On 02-08-2019 10:08:00 ASSISTANT PURCHASING MANAGER by Errol Polk [email or web address] <ELECTRONICALLY SIGNED> By: Errol Polk MD, [facility] 02/08/19 1008 0808 Errol Polk MD, [facility] /EPI
[2019-02-08 14:12] LABS: PCO2 59.2 mmHg (35.0-45.0); PO2 107.5 mmHg (80.0-100.0); pH 7.226 (7.360-7.450); sO2 96.9 % (92.0-98.0)
[2019-02-08 14:58] LABS: APTT 37.3 Seconds (24.5-32.8); FIBRINOGEN 217.7 mg/dL (210-360); INR 1.2; PROTIME 12.4 Seconds (9.3-11.4)
--- NOTE | 2019-02-08 15:51 | NUR ---
Pt TRANSFERRED TO ICU D/T NEED FOR HIGHER LEVEL OF CARE. WILL NEED UPDATED PT ORDERS ONCE Pt MEDICALLY STABLE AND APPROPRIATE TO RESUME PT SERVICES.
--- NOTE | 2019-02-08 17:07 | NUR ---
VASCULAR ACCESS TEAM ORDER FOR CENTRAL LINE PLACEMENT. CONSENT OBTAINED FROM DPOA. R IJ WIDELY PATENT ON U.S ASSESSMENT. PATIENT PREPPED AND DRAPED UNDER STERILE CONDITIONS. 3ML 1% LIDOCAINE GIVEN SUB Q INJECTION. VEIN CANNULATED WITH ONE ATTEMPT. GUIDEWIRE ADVANCED EASILY. VEIN DILATED. GUIDEWIRE REMOVED INTACT. 25CM LINE INSERTED TO 17CM INTERNAL AND 8CM EXTERNAL. ALL THREE LUMENS FLUSH AND DRAW EASILY. PATIENT TOLERATED PROCEDURE WELL. CXR FOR PLACEMENT VERIFICATION. LINE RELEASED FOR IMMEDIATE USE TO RN.
--- NOTE | 2019-02-08 18:55 | NUR ---
PATIENT ARRIVED TO ICU AT APPROX 1500 WITH CCU NURSE AT BEDSIDE. PATIENT WAS MADE COMFORTABLE AND PLACED ON THE MONITOR. ALL ORDERS RECIEVED AND IMPLIMENTED. SOA NOTED WHILE LYING FLAT. DENIES ANYOTHER ISSUES. NO FURTHER CONCERNS. WILL CONTINUE TO MONITOR AND CARE PER PLAN OF CARE.
[2019-02-09] VITALS (94 sets, daily range): BP systolic 85–121; BP diastolic 45–68
--- NOTE | 2019-02-09 10:47 | EKG ---
[address] [address] ELECTROCARDIOGRAM REPORT Name: KOURTNEY THOMAS Room #: 245-P ADM IN M.R.#: [id number] Admission: 02/06/19 Attend Phys: Murphy Martell MD Discharge: Date of : 45 Report #: [id number] THIS REPORT FOR: //name// [facility] ED Test Date: 2019-02-06 Test Time: 11:24:02 Pat Name: KOURTNEY THOMAS Department: Room: [facility] Gender: F Imagery Intelligence: [facility] : 1945 Requested By: Tali Anderson Order Number: [id number] MD: Orlando Whitfield Measurements Intervals [place] Rate: 121 P: 75 [place]: 160 QRS: -49 QRSD: 130 T: -44 QT: 363 QTc: 515 Interpretive Statements Sinus tachycardia Multiple ventricular premature complexes RBBB and LAFB Compared to ECG 02/20/2018 19:22:47 Ventricular premature complex(es) now present Sinus rhythm no longer present Left-axis deviation no longer present ST (T wave) deviation no longer present Electronically Signed On 02-09-2019 10:46:30 ENVIRONMENTAL COMPLIANCE ENGINEER by Orlando Whitfield [email or web address] <ELECTRONICALLY SIGNED> By: Orlando Whitfield MD 02/09/19 1046 1124 [id number] Orlando Whitfield MD /EPI
--- NOTE | 2019-02-09 12:44 | HC ---
[facility] [address] CONSULTATION Name: KOURTNEY THOMAS Room #: 245-P ADM IN M.R.#: [id number] Admission: 02/06/19 Attend Phys: Murphy Martell MD Discharge: Date of : 45 Report #: [id number] THIS REPORT FOR: //name// CC: Murphy Blackburn DATE OF SERVICE: 02/07/2019 INFECTIOUS DISEASE CONSULTATION REASON FOR CONSULTATION: I was asked to evaluate concerning community-acquired pneumonia. HISTORY OF PRESENT ILLNESS: The patient is a 73-year-old with end-stage kidney disease, on chronic hemodialysis with advanced COPD, coronary artery disease. She presents after several days of cough and shortness of breath with low-grade fever. She has had no travel outside the [place]. She has been vaccinated appropriately. She has had intermittent cough with purulent sputum production. No hemoptysis. Denies any chest pain. Admitted through the Emergency Room and was started on vancomycin, ceftriaxone and azithromycin. She has become more somnolent today. She has had episodes of lucency but then falls back to sleep. Oxygen saturation has been stable per nasal cannula. It is noted that she has an ejection fraction of 40-45%. She has known cardiomyopathy and is followed by Cardiovascular medicine. There have been no dysrhythmias. PAST MEDICAL HISTORY: End-stage renal disease, COPD, diabetes, remote history of C. difficile colitis, AV fistula, multiple cardiac catheterizations, appendectomy and right hip repair. FAMILY HISTORY: She is adopted. SOCIAL HISTORY: Nonsmoker, no significant alcohol intake. ALLERGIES: None known, although she developed kidney failure with LISINOPRIL. MEDICATIONS: Included isosorbide mononitrate, clopidogrel, aspirin, ipratropium and albuterol, atorvastatin, multivitamin, lactobacillus, Tessalon Perles, iron sulfate, home oxygen therapy, Idris, Procrit, midodrine, Anoro Ellipta inhaler, Proventil inhaler, allopurinol, metoprolol. REVIEW OF SYSTEMS: Ten-point review was negative other than what has been described above. PHYSICAL EXAMINATION: VITAL SIGNS: Afebrile, hemodynamically stable. The patient was lethargic. She would awaken and would follow commands. She was able to converse and give some [facility] [address] [place] [address] CONSULTATION Name: KOURTNEY THOMAS Room #: [address] [place] [address] [place] ..#: [id number] Admission: 02/06/19 Attend Phys: Murphy Martell MD Discharge: Date of : 45 Report #: [id number] history. She did know she was in the hospital. She did give me a reasonable history and told me that she started feeling bad just before Fredy. SKIN: Without rash or decubitus. No palpable adenopathy. EYES: Without scleral icterus. MOUTH: Without mucositis. NECK: Supple, with no thyromegaly or mass. LUNGS: Few crackles in the right base posteriorly. No consolidation or rub. HEART: Regular, without murmur, gallop or rub. ABDOMEN: Soft, nontender with no hepatosplenomegaly or mass. GENITOURINARY: External genitalia without lesion. RECTAL: Not performed. Perianal examination was without ulceration. BACK: Nontender. No CVA tenderness. EXTREMITIES: With left upper extremity AV fistula without tenderness or erythema. NEUROLOGIC: Cranial nerves were intact. Strength in the upper and lower extremities was symmetric, although she was generally weak. Sensation in the upper and lower extremities was within normal limits to fine touch. LABORATORY STUDIES: Hemoglobin is 8.9, WBC 2.8, platelet count 112,000. Differential yesterday, 88% neutrophils, 3% lymphocytes. Creatinine is 3.5. Sodium 137, potassium 4.2. Troponin 0.55. Procalcitonin 2.1. TSH 0.7. MRSA negative. Influenza A and B antigens negative. Chest x-ray with right lower lobe patchy infiltrate. IMPRESSION: 1. A 73-year-old with community-acquired right lower lobe pneumonia. 2. Encephalopathy secondary to pneumonia. 3. Ischemic cardiomyopathy. 4. Advanced chronic obstructive pulmonary disease. 5. End-stage renal disease. RECOMMENDATIONS: We will continue broad antibiotic coverage for both typical and atypical pathogens. Obtain sputum culture and await blood cultures. We will check urine antigen the patient was able to produce. I also sent off viral respiratory panel from nasopharyngeal swab. We will anticipate adjusting antibiotics pending further studies. <ELECTRONICALLY SIGNED> By: Josue Chamberlain MD 02/09/19 1244 [id number] Josue Chamberlain MD /nt
--- NOTE | 2019-02-09 20:21 | NUR ---
Pt reports improvement in her breathing today. O2 is at 3 liters. Cough present but nonproductive. Appetite poor. Caregiver and DPOA by to visit today. Pt will have dialysis tomorrow. Reprot given to RN assuming care.
[2019-02-10] VITALS (86 sets, daily range): BP systolic 81–127; BP diastolic 43–71
[2019-02-10 05:15] LABS: HEMOGLOBIN 10.6 gm/dL (12.0-15.0); MCH 33.2 pg (26.0-34.0); MCHC 31.2 g/dL (28.0-37.0); MCV 106.4 fL (80.0-100.0); RBC 3.19 mil/uL (4.20-5.00); RDW 16.6 % (10.5-14.5); WBC 4.5 thou/uL (4.0-11.0)
[2019-02-10 06:01] LABS: ALBUMIN 2.5 g/dL (3.4-5.0); CALCIUM 8.3 mg/dL (8.5-10.1); CREATININE 2.7 mg/dL (0.6-1.0); PHOSPHORUS 4.2 mg/dL (2.5-4.9); POTASSIUM 3.4 mmol/L (3.5-5.1)
--- NOTE | 2019-02-10 07:16 | NUR ---
PATIENT TRANSFERRED TO ICU DUE TO CHANGE IN MEDICAL STATUS. WILL AWAIT NEW ORDERS ONCE PATIENT IS MEDICALLY STABLE.
--- NOTE | 2019-02-10 18:45 | NUR ---
TOLERATED DIALYSIS WITH 1000CC REMOVED. LEVOPHED TITRATED OFF. PT REFUSING ALL CARES INCLUDING PO MEDS, SHE DEEP BREATHS THEN REFUSES TO COUGH, REFUSES TURNING AND MEALS. HOME CAREGIVER PRESENT, UNSUCCESSFULLY ATTEMPTING TO ENCOURAGE PT TO COOPERATE WITH CARES. MINIMAL PROGRESS.
[2019-02-11] VITALS (15 sets, daily range): BP systolic 91–128; BP diastolic 45–63
[2019-02-11 06:38] LABS: CALCIUM 8.9 mg/dL (8.5-10.1); CREATININE 2.1 mg/dL (0.6-1.0); MAGNESIUM 1.8 mg/dL (1.8-2.4); PHOSPHORUS 3.4 mg/dL (2.5-4.9); POTASSIUM 3.4 mmol/L (3.5-5.1)
--- NOTE | 2019-02-11 07:00 | NUR ---
ASSUMED CARE OF PT AT 1900. PT ORIENTED, BUT SOMEWHAT CONFUSED. PT BECAME INCREASINGLY IRRITABLE OVER THE FIRST FOUR HOURS OF THE NIGHT. ATIVAN GIVEN X1 FOR CIWA >8. PT SLEPT WELL THE REMAINDER OF THE NIGHT. PT OFF LEVO GTT THROUGH THE NIGHT AND MAINTAINED MAP >60. WILL CONTINUE TO MONITOR.
--- NOTE | 2019-02-11 11:55 | NUR ---
Pt transferred to room 353 via bed. Pt transferred to new room by Aravind Vieyra RN and NURSING EDUCATION CONSULTANT. Personal belongings including iPad, glasses and dentures sent with the patient. Pt has been drowsy but arousable this morning. Pt too sleepy to eat her breakfast or take oral medications. Dr Nichols notified of drowsiness and that meds not given. Dr Nichols ordered for neruro checks to be done q 4 hours. Report was called to the receiving nurse, Karla prior to transfer.
--- NOTE | 2019-02-11 14:16 | NUR ---
SW reviewed chart and spoke with nursing and attending physician. Pt was transferred to from ICU earlier today. SW met with pt and caregiver, Dia, at bedside. Pt was very lethargic during time of SW visit. Attending physician to update pt's DPOA regarding pt's status. Pt's DPOA is Dr. Pierce Lockhart at [place]. No weekend discharge planned. SW is following to assist as needed with discharge planning.
--- NOTE | 2019-02-11 18:28 | NUR ---
PT TOO DROWSY TO SAFELY TAKE PILLS, PO MEDICATIONS HELD, PHYSICIAN AWARE
[2019-02-12 00:20] VITALS: BP 104/60
--- NOTE | 2019-02-12 01:37 | NUR ---
PT RESTING IN BED UPON ARRIVAL TO SHIFT, PT MUMBLING TO SELF, RESTLESS ATTEMPTING TO SIT UP AND THEN RETURNS TO PILLOW. PT REPOSITIONED AND RETURNED TO RESTING PT NOT ABLE TO VERBALLY RESPOND TO DIRECT QUESTIONS, PT WAS ABLE TO FOLLOW DIRECTIONS, SUCH TURN OR LET GO. R IJ INTACT. O2 PER NC. SHERRY FISTUAL INTACT. PT IS ANURIC. BED ALARM ON.
[2019-02-12 05:05] VITALS: BP 94/57
[2019-02-12 07:23] VITALS: BP 103/54
[2019-02-12 10:52] LABS: ABSOLUTE NEUTROPHILS 3.8 thou/uL (1.4-8.2); BASOPHILS 0.1 % (0.0-2.0); HEMATOCRIT 34.8 % (37.0-47.0); HEMOGLOBIN 10.8 gm/dL (12.0-15.0); LYMPHOCYTES 2.7 % (24.0-44.0); MCHC 30.9 g/dL (28.0-37.0); MCV 106.6 fL (80.0-100.0); POLYS 93.2 % (36.0-66.0); RBC 3.26 mil/uL (4.20-5.00); RDW 16.4 % (10.5-14.5)
[2019-02-12 10:55] LABS: CALCIUM 9.6 mg/dL (8.5-10.1); POTASSIUM 3.5 mmol/L (3.5-5.1)
[2019-02-12 10:59] LABS: MAGNESIUM 1.9 mg/dL (1.8-2.4); PHOSPHORUS 4.1 mg/dL (2.5-4.9)
[2019-02-12 11:08] VITALS: BP 132/49
[2019-02-12 12:09] LABS: ANISOCYTOSIS 1+; MACROCYTES 1+; PLATELET COUNT 117 thou/uL (150-400)
[2019-02-12 15:34] VITALS: BP 144/65
--- NOTE | 2019-02-12 17:14 | NUR ---
ASSUMED CARE OF PT AT 0700. PT HARDLY AROUSABLE AT TIMES. WEAK. ABLE TO ANSWER SIMPLE QUESTIONS AT TIMES. ATTEMPTS TO COOPERATE. ABLE TO SWALLOW SEVERAL PILLS CRUSHED IN APPLE SAUCE THIS MORNING. HD PERFORMED AT BEDSIDE - [address] HEAD RESULTS PENDING. 10 BEAT RUN OF [facility] THIS AM - PHYSICIAN AWARE. VITALS STABLE. NO PROGRESS TOWARD POC GOALS AT THIS TIME.
[2019-02-12 19:37] VITALS: BP 134/69
[2019-02-12 20:49] LABS: BE(vivo) 0 mmol/L (-2 to +3); HCO3 26.6 mmol/L (22.0-26.0); PCO2 53.1 mmHg (35.0-45.0); sO2 95.4 % (92.0-98.0)
[2019-02-12 20:51] LABS: pH 7.318 (7.360-7.450)
--- NOTE | 2019-02-12 21:03 | NUR ---
CRITICAL PH CALLED TO PIECE CUTTER OWNER MANAGER.
--- NOTE | 2019-02-12 21:32 | NUR ---
RT NOTIFIED OF STERILE SUPERVISOR ORDERS FOR ABG AM, BIPAP, CONSULT PULM ROUTINE.
[2019-02-12 22:06] LABS: HEPATITIS B SURFACE AG Negative (Negative)
--- NOTE | 2019-02-13 00:19 | NUR ---
PT RESTING IN BED, RESTLESS, REPOSITIONING LEGS , HANDS BILATERAL GRABBING AT 02 NC AND SINCE BIPAP PLACED AT MASK OR WIRES TO BIPAP. PT ALERT AND OPENS EYES SPONTANEOUSLY, NOT ANSWERING QUESTIONS, MUMBLES TO SELF. PT HAD BM, PT DOES ASSIST WITH TURNING. LUNGS WITH WHEEZES DIMINISHED IN BASES. SHERRY FISTULA, R IJ, REMAINS ANURIC.
[2019-02-13 02:59] VITALS: BP 121/54
[2019-02-13 05:06] LABS: BE(vivo) -2.2 mmol/L (-2 to +3); HCO3 23.1 mmol/L (22.0-26.0); PO2 97.4 mmHg (80.0-100.0); pH 7.359 (7.360-7.450); sO2 97.2 % (92.0-98.0)
[2019-02-13 08:21] VITALS: BP 131/72
[2019-02-13 11:31] VITALS: BP 141/65
[2019-02-13 13:42] LABS: ABSOLUTE NEUTROPHILS 4.2 thou/uL (1.4-8.2); BASOPHILS 0.5 % (0.0-2.0); HEMATOCRIT 29.2 % (37.0-47.0); HEMOGLOBIN 9.3 gm/dL (12.0-15.0); MCH 32.9 pg (26.0-34.0); MCHC 31.8 g/dL (28.0-37.0); MCV 103.5 fL (80.0-100.0); MONOCYTES 3.3 % (1.0-8.0); PLATELET COUNT 109 thou/uL (150-400); POLYS 94.2 % (36.0-66.0); RBC 2.83 mil/uL (4.20-5.00); RDW 15.9 % (10.5-14.5); WBC 4.5 thou/uL (4.0-11.0)
[2019-02-13 14:05] LABS: ALBUMIN 2.6 g/dL (3.4-5.0); CALCIUM 9.4 mg/dL (8.5-10.1); CREATININE 2.4 mg/dL (0.6-1.0); MAGNESIUM 1.8 mg/dL (1.8-2.4); POTASSIUM 3.7 mmol/L (3.5-5.1); TOTAL BILIRUBIN 0.5 mg/dL (<0.1-1.0); TOTAL PROTEIN 5.2 g/dL (6.4-8.2)
[2019-02-13 15:38] VITALS: BP 139/65
--- NOTE | 2019-02-13 16:44 | NUR ---
pt opens her eyes by voice and she does not floow commands, pt started BIPAP at past shift , due to abnormal ABG results, but pt's sob has not improved, request to contiuing BIPAP, Hospital has called pt's POA , and new order received, pt starts comfort care and palliative care DR has called for consult.pt is conforted now.pain naedication has giving as order.
[2019-02-13 19:55] VITALS: BP 127/61
[2019-02-13 22:09] LABS: ADENOVIRUS Negative (Negative); INFLUENZA A Negative (Negative); INFLUENZA B Negative (Negative); METAPNEUMOVIRUS Negative (Negative); PARAINFLUENZA 1 Negative (Negative); PARAINFLUENZA 2 Negative (Negative); PARAINFLUENZA 3 Negative (Negative); RHINOVIRUS Negative (Negative); RSV A Positive (Negative); RSV B Negative (Negative)
[2019-02-14 05:00] VITALS: BP 123/59
[2019-02-14 08:00] VITALS: BP 124/52
--- NOTE | 2019-02-14 09:13 | NUR ---
Nutrition: Followup deferred as pt is now comfort care.
[2019-02-14 15:00] VITALS: BP 117/44
--- NOTE | 2019-02-14 15:13 | NUR ---
DR. CORMIER HAD BEEN CONSULTED BUT HAD SPOKEN WITH CARE TEAM AND PT'S DPOA AND IT HAD BEEN DISCUSSED THAT THEY WISH TO CONTINUE WITH ABX AND DIALYSIS FOR A TIME TO SEE IF PT IMPROVES. CM TO FOLLOW INDICATED WITH DC PLANNING.
[2019-02-14 19:26] VITALS: BP 129/51
--- NOTE | 2019-02-15 02:45 | NUR ---
progress pt remains lethargic, does open eyes briefly with stimuli. Respirations quiet and easy lung sounds diminished. right ij intact drsg c/d/i all ports aspirated for blood and flush without difficulty. Caregivers at bedside repositioning q2hrs and providing oral care.Left av fistula with good bruit and trill. Scheduled for dialysis tomorrow. DPOA and physicians plan on continuing dialysis and antibiotic treatment for a little longer to see if patient improves.
[2019-02-15 06:16] LABS: HEMATOCRIT 36.5 % (37.0-47.0); MCH 32.5 pg (26.0-34.0); MCHC 30.9 g/dL (28.0-37.0); MCV 105.1 fL (80.0-100.0); RBC 3.47 mil/uL (4.20-5.00); RDW 16.6 % (10.5-14.5)
[2019-02-15 06:23] LABS: CALCIUM 9.7 mg/dL (8.5-10.1); MAGNESIUM 1.9 mg/dL (1.8-2.4); POTASSIUM 3.5 mmol/L (3.5-5.1)
[2019-02-15 06:26] LABS: CREATININE 3.8 mg/dL (0.6-1.0)
[2019-02-15 06:28] LABS: HEMOGLOBIN 11.3 gm/dL (12.0-15.0)
[2019-02-15 07:50] VITALS: BP 147/67
--- NOTE | 2019-02-15 12:31 | NUR ---
Assumed pt care at 7am.Pt in bed sedated and lethargic.Assessment completed. sitter gave bath and oral care.Updates given to rn clinical review prior to dialysis treatment.Dr Vital called for albumin iv during dialysis treatment. No changes in pt metal status.Will continue to monitor.
[2019-02-15 19:20] VITALS: BP 155/79
--- NOTE | 2019-02-16 00:54 | NUR ---
ASSUMED PT CARE AT 1900. LABORED BREATHING, O2 SATURATION OF 74%. O2 BUMPED UP TO 5 WITH OXYGEN NOW AT 78%. CALLED HOG COUNTER CHUTE BOSS, MORPHINE GIVEN FOR AIR HUNGER. ASKED RESPIRATORY TO GIVE BREATHING TREATMENT. 02 UP TO 94% AFTER INTERVENTIONS. LOW GRADE FEVER NOTED, DIAPHORETIC, SOME BLANKETS REMOVED. TEMP RECHECKED, NO FEVER. CAREGIVER AT BEDSIDE 01/09, SHE STATES PATIENT WOULD NOT WANT THIS. PT STILL SLEEPING, UNAROUSABLE. WILL CONTINUE TO MONITOR.
[2019-02-16 05:02] VITALS: BP 147/47
[2019-02-16 05:55] LABS: HEMATOCRIT 35.5 % (37.0-47.0); MCH 32.7 pg (26.0-34.0); MCV 105.6 fL (80.0-100.0); RBC 3.36 mil/uL (4.20-5.00); RDW 16.4 % (10.5-14.5); WBC 10.5 thou/uL (4.0-11.0)
[2019-02-16 06:23] LABS: CALCIUM 9.5 mg/dL (8.5-10.1); POTASSIUM 4.1 mmol/L (3.5-5.1)
[2019-02-16 06:45] LABS: CREATININE 2.7 mg/dL (0.6-1.0)
[2019-02-16 07:05] VITALS: BP 147/61
--- NOTE | 2019-02-16 12:27 | NUR ---
Assumed pt care at 7am.Pt in bed more alert, and able to track with staff movement with eyes today. And actually respond to name calling but non verbal. Assessment completed.vss.Turned and repositioned q2h for comfort.Pt not eating or drinking but oral care given.Dr Martell here,updates given.Sitter at bs at alltimes.Will continue to monitor.
[2019-02-16 19:23] VITALS: BP 86/39
--- NOTE | 2019-02-17 02:31 | NUR ---
ASSUMED CARE AROUND 191. LETHARGIC AND DOES NOT RESPOND TO ANY STIMULI AT THIS TIME. TF MAIDA INITIATED THRU DOBHOFF AFTER PLACEMENT VERIFIED. CAREGIVER AT BEDSIDE AT ALL TIME. AROUND 0, THE CAREGIVER REPORTED PT IS NOT BREATHING. WAS VERIFIED AND PRONOUNCED BY 2RNS AT BEDSIDE. DPOA CALLED AND INFORMED. [employer] B[employer] UMPIRE FOR [employer] PRESSURE TESTER OPERATOR FOR CALLED AND NOTIFIED. ALL CONSULTING PHYSICANS ANWERING SERVICES WERE NITIFIED. MTN INDICATED THAT PT IS CANDITATE FOR TRANSPLATAION AND RECOMMENDED NOT REPLEASE THE BODY TO HOME. PER DPOA, DPOA HAS TO CONFIRM ARRANGEMENTS THAT HE WANTS THE BODY TO BE PLACED IN [place]. SECURITY TOOK THE BODY DOWN. BELONINGS WERE SENT HOME WITH CAREGIVER Ozzy. TWO RINGS REMAINTED ON PT D/T INABILITY TO REMOVE THEM.
== END 2019-02-17 00:43 | DRG 871 ==
LOC: ER 11:00 → EROBS 14:06 → 2N 14:06 → ICU 02-08 15:30 → 3W 02-11 12:01 → 4W 02-14 05:00
PROVIDERS: Emergency Medicine; Hospitalist; Internal Medicine; Internal Medicine Nephrology; Nurse Practitioner; Nurse Practitioner Acute Care; Specialist; ADMIT Internal Medicine
PROC: 5A1D70Z Performance of Urinary Filtration, Intermittent, Less than 6 Hours Per Day (ICD-10-PCS; 2019-02-08)
PROC: 5A09357 Assistance with Respiratory Ventilation, Less than 24 Consecutive Hours, Continuous Positive Airway Pressure (ICD-10-PCS; principal; 2019-02-12)
PROC: 5A1D70Z Performance of Urinary Filtration, Intermittent, Less than 6 Hours Per Day (ICD-10-PCS; 2019-02-17)
DX: A41.9 Sepsis, unspecified organism (principal); J18.9 Pneumonia, unspecified organism; N18.6 End stage renal disease; R65.21 Severe sepsis with septic shock; J96.21 Acute and chronic respiratory failure with hypoxia; J96.22 Acute and chronic respiratory failure with hypercapnia; G92 Toxic encephalopathy; I12.0 Hypertensive chronic kidney disease with stage 5 chronic kidney disease or end stage renal disease; E44.0 Moderate protein-calorie malnutrition; J44.1 Chronic obstructive pulmonary disease with (acute) exacerbation; J44.0 Chronic obstructive pulmonary disease with (acute) lower respiratory infection; Z68.1 Body mass index [BMI] 19.9 or less, adult; F10.239 Alcohol dependence with withdrawal, unspecified; D61.818 Other pancytopenia; I45.2 Bifascicular block; R79.89 Other specified abnormal findings of blood chemistry; M10.9 Gout, unspecified; H35.30 Unspecified macular degeneration; F17.210 Nicotine dependence, cigarettes, uncomplicated; I25.10 Atherosclerotic heart disease of native coronary artery without angina pectoris; E78.5 Hyperlipidemia, unspecified; I25.5 Ischemic cardiomyopathy; Z66 Do not resuscitate; D50.9 Iron deficiency anemia, unspecified; D69.6 Thrombocytopenia, unspecified; Z99.81 Dependence on supplemental oxygen; Z79.82 Long term (current) use of aspirin; Z79.899 Other long term (current) drug therapy; Z88.8 Allergy status to other drugs, medicaments and biological substances; Z90.89 Acquired absence of other organs; Z99.2 Dependence on renal dialysis; Z51.5 Encounter for palliative care; I95.89 Other hypotension; E87.6 Hypokalemia
CPT/HCPCS: 10040; 10078; 10080; 10081; 32100